=== PATIENT | male | born 1940 | race Caucasian/White ===

== ENCOUNTER 2021-04-26 01:48 | Inpatient (IN) | payer MEDICARE, OTHER ==
[2021-04-26 03:02] LABS: BASOPHILS % (AUTO) 0.3 %; EOSINOPHILS % (AUTO) 0.8 %; HCT - HEMATOCRIT 33.9 % (42.0-52.0); HGB - HEMOGLOBIN 11.4 g/dL (14.0-18.0); LYMPHOCYTES % (AUTO) 14.9 %; MEAN CORPUSCULAR HEMOGLOBIN 30.3 pg (27.0-31.0); MEAN CORPUSCULAR HGB CONC 33.6 g/dL (32.0-36.0); MEAN CORPUSCULAR VOLUME 90.2 fL (80.0-94.0); MEAN PLATELET VOLUME 9.8 fL (7.4-11.4); PLT - PLATELET COUNT 171 10^3/uL (130-450); RED BLOOD COUNT 3.76 10^6/uL (4.70-6.10); RED CELL DISTRIBUTION WIDTH 13.3 % (12.0-15.0); WHITE BLOOD COUNT 7.8 x10^3/uL (4.8-10.8)
[2021-04-26 03:09] LABS: ABNORMAL LYMPHS % (MANUAL) 0 %
[2021-04-26 03:13] LABS: VBG BASE EXCESS 0.9 mmol/L (-2 - +2); VBG HCO3 23.8 mmol/L (23-28); VBG OXYGEN SATURATION 68.5 % (60-80); VBG PCO2 32.4 mmHg (41-51); VBG PH 7.484 (7.31-7.41); VBG PO2 30.8 mmHg (25-47); VBG TOTAL CO2 24.8 mmol/L (24-29)
[2021-04-26 03:18] LABS: ALBUMIN 3.1 g/dL (3.2-5.5); ALBUMIN/GLOBULIN RATIO 0.7 (1.0-2.2); BILIRUBIN,TOTAL 1.5 mg/dL (0.2-1.0); CALCIUM 8.8 mg/dL (8.5-10.3); CREATININE 1.6 mg/dL (0.6-1.2); TOTAL PROTEIN 7.6 g/dL (6.7-8.2)
[2021-04-26 03:21] LABS: BAND NEUTROPHILS % (MANUAL) 8 %; DIFFERENTIAL COMMENT MANUAL DIFFERENTIAL; LYMPHOCYTES # (MANUAL) 0.9 10^3/uL (1.5-3.5); LYMPHOCYTES % (MANUAL) 11 %; MONOCYTES # (MANUAL) 0.6 10^3/uL (0.0-1.0); NEUTROPHILS # (MANUAL) 6.3 10^3/uL (1.5-6.6); PLATELET ESTIMATE, MANUAL NORMAL (130-450,000) (NORMAL); RBC MORPHOLOGY (MULTIPLE) NORMAL APPEARANCE (NORMAL)
[2021-04-26] MEDS ORDERED: IOVERSOL 320 100 ML VIAL IVP ONE ×2 (03:32→05:10)
[2021-04-26] MEDS ORDERED: ONDANSETRON 4 MG/2 ML VIAL IVP PRN (05:38)
[2021-04-26] MEDS ORDERED: ACETAMINOPHEN 325 MG TABLET PO PRN (05:38)
--- NOTE | 2021-04-26 05:46 | ED Physician Documentation ---
History of Present Illness - Stated complaint Stated Complaint: SOA - Chief complaint Chief Complaint: Cardiac - History obtained from History obtained from: Patient - Additonal information Additional information: 81-year-old man with history of COPD, pacemaker, high blood pressure, presents with dyspnea on exertion over the past several days progressively worsening dyspnea at rest after driving here 2 days ago from [place]. Patient has no prior history of blood clots. Denies chest pain, but does have some mild pleurisy. Denies cough. Denies fever, leg swelling. Review of Systems Ten Systems: 10 systems reviewed and negative Constitutional: denies: Fever, Chills Cardiac: denies: Chest pain / pressure Respiratory: reports: Dyspnea PD PAST MEDICAL HISTORY - Allergies Allergies/Adverse Reactions: Allergies Allergy/AdvReac Type Severity Reaction Status Date / Time clopidogrel [From Plavix] Allergy Respiratory Verified 04/26/21 02:08 enoxaparin [From Lovenox] Allergy Anaphylaxis Verified 04/26/21 02:07 furosemide [From Lasix] Allergy Respiratory Verified 04/26/21 02:08 PD ED PE NORMAL - Vitals Vital signs reviewed: Yes - General General: Alert and oriented X 3, No acute distress, Well developed/nourished - HEENT HEENT: Atraumatic, PERRL, EOMI - Neck Neck: Supple, no meningeal sign - Cardiac Cardiac: Other (Borderline tachycardic rate, regular rhythm) - Respiratory Respiratory: No respiratory distress, Clear bilaterally - Abdomen Abdomen: Non tender, Non distended - Back Back: No CVA TTP - Derm Derm: Normal color, Warm and dry - Extremities Extremities: No deformity, No edema - Neuro Neuro: Alert and oriented X 3 - Psych Psych: Normal mood, Normal affect Results - Vitals Vitals: Vital Signs - 24 hr 04/26/21 04/26/21 02:03 03:49 Temperature 36.4 C L Heart Rate 118 H 104 H Respiratory 20 22 Rate Blood Pressure 138/72 H O2 Saturation 96 96 Oxygen O2 Source Room air - EKG (time done) 0212 Rate: Rate (enter#) (111) Rhythm: Sinus tachycardia Duncan: Normal Intervals: Normal OR - Labs Labs: Laboratory Tests 04/26/21 04/26/21 04/26/21 02:55 02:55 02:55 WBC 7.8 RBC 3.76 L Hgb 11.4 L Hct 33.9 L MCV 90.2 MCH 30.3 MCHC 33.6 RDW 13.3 Plt Count 171 MPV 9.8 Neut # (Auto) Not Reportable Lymph # (Auto) Not Reportable Emery # (Auto) Not Reportable Eos # (Auto) Not Reportable Baso # (Auto) Not Reportable Absolute Nucleated RBC Not Reportable Total Counted 100 Band Neuts % (Manual) 8 Abnorm Lymph % (Manual) 0 Nucleated RBC % Not Reportable Neutrophils # (Manual) 6.3 Lymphocytes # (Manual) 0.9 L Monocytes # (Manual) 0.6 Eosinophils # (Manual) 0.0 Basophils # (Manual) 0.0 Differential Comment MANUAL DIFFERENTIAL Platelet Estimate NORMAL (130-450,000) RBC Morph Micro Appear NORMAL APPEARANCE D-Dimer VBG pH VBG pCO2 VBG pO2 VBG HCO3 VBG Total CO2 VBG O2 Saturation VBG Base Excess Sodium 133 L Potassium 4.0 Chloride 98 L Carbon Dioxide 24 Anion Gap 11.0 BUN 28 H Creatinine 1.6 H Estimated GFR (MDRD) 41 L Glucose 107 H Calcium 8.8 Total Bilirubin 1.5 H AST 13 ALT 14 Alkaline Phosphatase 58 Troponin I High Sens 27.1 H* Total Protein 7.6 Albumin 3.1 L Globulin 4.5 H Albumin/Globulin Ratio 0.7 L Lipase 19 L 04/26/21 04/26/21 02:55 03:05 WBC RBC Hgb Hct MCV MCH MCHC RDW Plt Count MPV Neut # (Auto) Lymph # (Auto) Emery # (Auto) Eos # (Auto) Baso # (Auto) Absolute Nucleated RBC Total Counted Band Neuts % (Manual) Abnorm Lymph % (Manual) Nucleated RBC % Neutrophils # (Manual) Lymphocytes # (Manual) Monocytes # (Manual) Eosinophils # (Manual) Basophils # (Manual) Differential Comment Platelet Estimate RBC Morph Micro Appear D-Dimer 932.3 H VBG pH 7.484 H VBG pCO2 32.4 L VBG pO2 30.8 VBG HCO3 23.8 VBG Total CO2 24.8 VBG O2 Saturation 68.5 VBG Base Excess 0.9 Sodium Potassium Chloride Carbon Dioxide Anion Gap BUN Creatinine Estimated GFR (MDRD) Glucose Calcium Total Bilirubin AST ALT Alkaline Phosphatase Troponin I High Sens Total Protein Albumin Globulin Albumin/Globulin Ratio Lipase PD MEDICAL DECISION MAKING - ED course ED course: PE on CT imaging without R heart strain. patient states that he believes he has had heparin in the past without issue. He had lovenox andbecame "short of breath after a few days". d/w Dr. Ozunaf for admission and he agrees we will give him heparin and monitor for allergic reaction. Departure - Departure Disposition: 66 [facility] DC/Xfer Clinical Impression: Pulmonary emboli, Shortness of breath Condition: Stable
[2021-04-26 06:04] LABS: BASOPHILS % (AUTO) 0.1 %; EOSINOPHILS % (AUTO) 0.5 %; HCT - HEMATOCRIT 32.9 % (42.0-52.0); HGB - HEMOGLOBIN 11.2 g/dL (14.0-18.0); LYMPHOCYTES # (AUTO) 1.3 10^3/uL (1.5-3.5); LYMPHOCYTES % (AUTO) 18.3 %; MEAN CORPUSCULAR HEMOGLOBIN 30.4 pg (27.0-31.0); MEAN CORPUSCULAR VOLUME 89.2 fL (80.0-94.0); MEAN PLATELET VOLUME 9.5 fL (7.4-11.4); MONOCYTES # (AUTO) 1.2 10^3/uL (0.0-1.0); MONOCYTES % (AUTO) 16.8 %; NEUTROPHILS # (AUTO) 4.4 10^3/uL (1.5-6.6); NEUTROPHILS % (AUTO) 59.5 %; PLT - PLATELET COUNT 169 10^3/uL (130-450); RED BLOOD COUNT 3.69 10^6/uL (4.70-6.10); RED CELL DISTRIBUTION WIDTH 13.3 % (12.0-15.0); WHITE BLOOD COUNT 7.3 x10^3/uL (4.8-10.8)
[2021-04-26 06:08] LABS: INR 1.5 (0.8-1.2); PT - PROTHROMBIN TIME 15.9 secs (9.9-12.6)
[2021-04-26 06:10] LABS: CALCIUM 8.7 mg/dL (8.5-10.3); CREATININE 1.6 mg/dL (0.6-1.2); POTASSIUM 3.9 mmol/L (3.5-5.0)
[2021-04-26 06:15] LABS: PARTIAL THROMBOPLASTIN TIME 30.3 secs (24.9-33.3)
[2021-04-26 08:06] LABS: B. PARAPERTUSSIS- RESP PCR PAN NOT DETECTED; B. PERTUSSIS- RESP PCR PANEL NOT DETECTED; C. PNEUMONIAE- RESP PCR PANEL NOT DETECTED; CORONAVIRUS 229E-RESP PCR NOT DETECTED; CORONAVIRUS HKU1-RESP PCR NOT DETECTED; CORONAVIRUS NL63-RESP PCR NOT DETECTED; CORONAVIRUS OC43-RESP PCR NOT DETECTED; HUMAN METAPNEUMOVIRUS NOT DETECTED; INFLUENZA A- RESP PCR PANEL NOT DETECTED; INFLUENZA B - RESP PCR PANEL NOT DETECTED; M. PNEUMONIAE- RESP PCR PANEL NOT DETECTED; PARAINFLUENZA VIRUS 1 NOT DETECTED; PARAINFLUENZA VIRUS 2 NOT DETECTED; PARAINFLUENZA VIRUS 3 NOT DETECTED; PARAINFLUENZA VIRUS 4 NOT DETECTED; RHINOVIRUS/ENTEROVIRUS NOT DETECTED; RSV- RESP PCR PANEL NOT DETECTED; SARS-CoV-2 -RESP PCR PANEL NOT DETECTED
--- NOTE | 2021-04-26 08:19 | XRAY Report ---
PROCEDURE: Chest 1 View X-Ray INDICATIONS: Chest pain TECHNIQUE: One view of the chest was acquired. COMPARISON: None FINDINGS: Surgical changes and devices: Pacemaking device in normal. Lungs and pleura: No pleural effusions or pneumothorax. Lungs are abnormal with a mild interstitial prominence bilaterally but no focal pneumonia. Mediastinum: Mediastinal contours appear normal. Heart size is normal. Bones and chest wall: No suspicious bony lesions. Overlying soft tissues appear unremarkable. IMPRESSION: Interstitial prominence, without cardiomegaly. Possible acute cardiogenic pulmonary edema versus perh aps reflection of prior smoking history. Pacemaking device and leads appear free of disruption. Prior sternotomy, presumed prior CABG. Reviewed by: Leonel Echevarria MD on 04/26/2021 8:17 AM PDT Approved by: Leonel Echevarria MD on 04/26/2021 8:17 AM PDT Station ID: [id number]
--- NOTE | 2021-04-26 09:30 | HISTORY & PHYSICAL EXAMINATION ---
Chief Complaint - Chief Complaint Chief Complaint: shortness of breath History of Present Illness - Admitted From Admitted From:: home - History Obtained From Records Reviewed: from PCP office (Aguila Saeed MD in [place], [place]) History obtained from: patient, records Exam Limitations: poor historian - History of Present Illness HPI Comment/Other: Mr. Rojas presented to the ED overnight with shortness of breath and dyspnea on exertion. Unbeknownst to his immediate family, he and his drove from their home in [place] to visit his 's sons who live here in [place]. The patient is a poor historian and it is unclear exactly when his symptoms started. He states he "must have had these clots for a while" and provides an unclear history of trouble walking and breathing, which he is now contributing to "all these clots." According to his PCP office, family had previously requested his license to be revoked due to safety and memory concerns. He does endorse pleurisy and dyspnea but denies palpitations, chest pain, dizziness, or nausea/vomiting. He does not have any immediate concerns, and emphatically states that "I know I'm living on borrowed time, but I know where I'm going when the time comes- all things considered, I think I'm doing pretty good!". In the ED, chest CT revealed bilateral saddle emboli within the main pulmonary arteries, moderate left and small right pleural effusions, and an inc idental finding of a 3.5cm adrenal nodule. Given his history of multiple medication allergies to anticoagulants, his consulting systems engineer office was contacted to clarify reaction severity and history. Unfortunately, his consulting systems engineer was out of the office and the office nurse was uncomfortable discussing patient details without the consulting systems engineer present. Today, will we optimize medication management of his PEs, monitor for new hemodynamic instability, and address safety issues as able and appropriate. History - Past Medical History Cardiovascular: reports: Congestive heart failure, Hypertension, Coronary artery disease, Peripheral Vascular Disease, NC. denies: Deep vein thrombosis, Murmur, Arrhythmia Respiratory: reports: COPD, Shortness of breath. denies: Asthma, Cystic fibrosis, Tuberculosis Neuro: reports: Dementia, CVA. denies: Alzhiemer's, Cerebral palsy, Headaches, Migraines, Parkinson's, Seizure disorder, Tremors, Multiple sclerosis Endocrine/Autoimmune: reports: Type 2 diabetes. denies: Type 1 diabetes, HyPERthyroidism, Systemic lupus erythematosus GI: reports: Chronic constipation, Cholelithiasis, Other. denies: Esophageal varices, GI bleed, C.difficile, Chronic diarrhea, Hepatitis, Cirrhosis, Ulcerative colitis, Crohn's disease : reports: Benign prostate hypertrophy, Frequency, Other (urgency, dysuria). denies: Dialysis, Chronic bladder infection, Indwelling catheter HEENT: reports: Other (cataracts). denies: Glaucoma, Chronic sinusitis, Chronic hearing loss Psych: reports: None. denies: Depression, Anxiety, Bipolar disorder, Schizophrenia, Panic attacks, ADD/ADHD, Post traumatic stress disorder, Claustrophobia, Obsessive compulsive disorder, Eating disorder Musculoskeletal: reports: Osteoarthritis, Gout, Fatigue, Chronic back pain. denies: Fibromyalgia, Paraplegia, Quadriplegia, Hemiplegia, Scoliosis Derm: reports: Psoriasis. 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 The patient has 5 brothers and 3 sisters, all . He states all of his siblings had "at least one NC at some point." Two sisters of heart complications related to untreated rheumatic fever complications. The patient has two daughters with his previous (who is ). One daughter of pneumonia 2/2 severe asthma. Living daughter has MS. Living arrangement: At home Living Situation: With spouse/s.o. (Lives at home with . Re- 4.5yrs ago. ) Social History Notes: Still active as [employer]or. Originally from [place]. - Substance History Use: Uses substance without health or social issues: NONE (Quit smoking and drinking 30yrs ago. History of 50-year 4ppd tobacco use prior to quitting.) Abuse: Recurrent use of substance despite neg consequences: NONE Dependence: Experiences withdrawal or developed tolerances: NONE - POLST Patient has POLST: Yes POLST Status: DNR (POLST at home) Meds/Allgy - Home Medications Home Medications: Ambulatory Orders Medication Instructions Recorded Confirmed Albuterol Sulfate [Proair 2 puffs PO Q4H PRN 04/26/21 04/26/21 Respiclick] Bumetanide [Bumex] 1 mg PO DAILY 04/26/21 04/26/21 Docusate Sodium 100Mg Capsule 100 mg PO DAILY PRN 04/26/21 04/26/21 [Colace 100Mg Capsule] Fluticasone/Vilanterol [Breo 1 puffs PO DAILY 04/26/21 04/26/21 Ellipta 100-25 Mcg INH] Glimepiride [Amaryl] 4 mg PO BID 04/26/21 04/26/21 Ivabradine HCl [Corlanor] 5 mg PO BID 04/26/21 04/26/21 Probenecid [Benemid] 500 mg PO BID 04/26/21 04/26/21 metOLazone [Metolazone] 5 mg PO DAILY 04/26/21 04/26/21 - Allergies Allergies/Adverse Reactions: Allergies Allergy/AdvReac Type Severity Reaction Status Date / Time clopidogrel [From Plavix] Allergy Respiratory Verified 04/26/21 02:08 enoxaparin [From Lovenox] Allergy Anaphylaxis Verified 04/26/21 02:07 furosemide [From Lasix] Allergy Respiratory Verified 04/26/21 02:08 Review of Systems - Constitutional Constitutional: reports: Fatigue, Weakness. denies: Fever, Chills, Diaphoresis, Night sweats, Weight gain, Weight loss - Eyes Eyes: denies: Pain, Irritation, Amaurosis, Dipolpia - Ears, Nose & Throat Ears, Nose & Throat: reports: Postnasal drainage. denies: Ear pain, Hearing loss, Hearing aids, Tinnitus, Nasal pain, Sore throat - Cardiovascular Cariovascular: reports: Irregular heart rate, Edema, Lightheadedness, Exertional dyspnea, Decr. exercise tolerance. denies: Palpitations, Chest pain, Orthopnea - Respiratory Respiratory: reports: SOB at rest, SOB with exertion, Pleuritic pain. denies: Wheezing, Hemoptysis, Stridor - Gastrointestinal Gastrointestinal: reports: Constipation, Bloating, Other (flatulence). denies: Abdominal distention, Diarrhea, Change in bowel habits, Rectal bleeding, Black stools, Bloody stools, Vomiting, Bile emesis, Shailesh blood emesis, Coffee grounds emesis, Poor appetite - Genitourinary Genitourinary: reports: Dysuria, Frequency, Urgency. denies: Hematuria, Flank pain, Urethral discharge - Musculoskeletal Musculoskeletal: reports: Back pain, Limited range of motion, Muscle weakness, Gout, Joint pain. denies: Muscle pain, Muscle aches - Integumentary Integumentary: reports: Dryness, Other (psoriatic patches). denies: Lumps, Acne, Pigment changes, Hair changes - Neurological Neurological: reports: General weakness, Numbness (numbness to bilateral fingers and feet), Memory problems. denies: Headache, Dizziness, Seizures, Slurred speech - Psychiatric Psychiatric: denies: Depression, Anxiety, Suicidal, Hallucinations, Homicidal - Endocrine Endocrine: denies: Polyuria, Polydypsia, Polyphagia, Intolerance to cold, Intolerance to heat - Hematologic/Lymphatic Hematologic/Lymphatic: reports: Bruising. denies: Lymphadenopathy, Bleeding tendencies, Recurrent infections Prior Level of Functionality: Patient is a poor historian and it is currently unclear what his baseline is. Prior to hospitalization patient reports being fully independent, but "forgetful." Exam - Vital Signs Vital Signs: Vital Signs x48h Temp Pulse Pulse Resp BP BP Pulse Ox 04/26/21 07:15 36.7 C 134 H 20 125/57 L 93 04/26/21 03:49 104 H 22 96 04/26/21 02:03 36.4 C L 118 H 20 138/72 H 96 - Physical Exam General Appearance: positive: No acute distress, Alert Eyes Bilateral: positive: PERRL, EOMI, No lid inflammation, Conjunctivae nml, No scleral icterus ENT: positive: Other (cerumen burden to both ears) Neck: positive: Thyroid nml, No JVD, Trachea midline Respiratory: positive: Other (slight crackles to LLL, shallow inspiration) Cardiovascular: positive: Irregularly irregular, Tachycardia Peripheral Pulses: positive: 2+ Abdomen: positive: Nml bowel sounds, Mass (palpable tender mass to LLQ; patient states this has been ongoing but is unclear of etiology) Back: positive: Nml inspection Skin: positive: Color nml, Warm, Dry, Other (scattered dry abrasions, psoriatic patches, and bruising) Extremities: positive: Non-tender, Full ROM, Pedal edema (+1 RLE) Neurologic/Psychiatric: positive: Weakness, Sensory loss (bilateral fingers and feet) Conclusion/Plan - Problem List (1) Pulmonary emboli Conclusion/Plan: CT scan reveals bilateral saddle pulmonary emboli within the main pulmonary arteries. PE likely provoked by recent long car ride as patient and his drove up from [place] this week prior to presenting symptoms. PESI score 133, but for now patient will remain on med-surg unit as he otherwise appears hemodynamically stable and does not currently have evidence of right heart strain. No indication for thrombolysis at this time, especially given patient's age and current stability. Patient has an unclear allergy/intolerance to multiple anticoagulants and was thus started on fondaparinux for initial anticoagulation. Will review best oral anticoagulant options tomorrow with patient and insurance. Qualifiers: Pulmonary embolism type: saddle Chronicity: acute (2) Atrial fibrillation with RVR Conclusion/Plan: New onset a-fib with RVR. Will recheck troponins and draw thyroid panel, but likely due to saddle PE. 1 dose IV metoprolol given prior to initiating oral metoprolol today. This afternoon, HR down to low 100's from prior 130's this morning. Will reassess tomorrow. (3) CHF (congestive heart failure) Qualifiers: Heart failure type: systolic Heart failure chronicity: acute on chronic Qualified Code(s): I50.23 - Acute on chronic systolic (congestive) heart failure (4) COPD (chronic obstructive pulmonary disease) Conclusion/Plan: Patient is not currently experiencing COPD exacerbation and is satting well on room air. Albuterol inhaler available as needed. Qualifiers: COPD type: unspecified COPD Qualified Code(s): J44.9 - Chronic obstructive pulmonary disease, unspecified (5) Chronic back pain Conclusion/Plan: Not currently in an acute flare. Tylenol ordered and available as needed for discomfort. (6) Generalized weakness Conclusion/Plan: Patient states that he has a walker at home, but does not use it. He reports "walking like he's drunk" recently, but denies falling or safety concerns. He seems to be a poor historian. May be experiencing acute weakness due to PE. Will encourage ambulation with nursing staff and order PT if needed. (7) Diabetes mellitus Conclusion/Plan: On Glimeperide at home. This will be held during this admission and will instead initiate sliding scale coverage while inpatient. Glucose levels stable so far since admission. 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
--- NOTE | 2021-04-26 09:54 | CT Report ---
PROCEDURE: ANGIO CHEST W/WO INDICATIONS: elevated dimer, soa CONTRAST: IV CONTRAST: Optiray 320 ml: 100 PO CONTRAST: *NO PO CONTRAST TECHNIQUE: After the administration of intravenous contrast, images were acquired from the pulmonary apices to t he posterior costophrenic angles. 3-dimensional maximum intensity projection (MIP) coronal and sagit vicky reformats were then acquired through the thorax. For radiation dose reduction, the following was used: automated exposure control, adjustment of mA and/or kV according to patient size. COMPARISON: Single view chest 04/26/2021. FINDINGS: Image quality: Excellent. Pulmonary arteries: Pulmonary arteries are normal in size, and demonstrate definite bilateral intral uminal filling defects diagnostic of central pulmonary embolism. These are nonocclusive, located at the bifurcation of the main pulmonary arteries with "saddle embolus" morphology extending into the im mediate adjacent branches of the main pulmonary arteries. Additional emboli, also nonocclusive, exten ding to the posterior basal pulmonary artery branches bilaterally. Lungs and pleura: Lungs are abnormal with what appears to be a combination of centrilobular emphysem a and mild pulmonary edema. There are bilateral pleural effusions, small on the right and small-to-mo derate on the left, and no pneumothorax. Central and peripheral airways are patent. Mediastinum: Heart size is normal, without pericardial effusion. No mediastinal or hilar adenopathy . Thoracic aorta is normal in caliber and enhancement. Esophagus is normal in caliber, without hiat al hernia. Pacemaking device and dual chamber leads normal. Bones and chest wall: No suspicious bony lesions. Ribs and thoracic spine appear intact throughout. No axillary or supraclavicular adenopathy. The thyroid is normal in size and there are no incident al findings. Abdomen: Visualized upper abdominal solid organs appear normal in the early arterial phase of enhanc ement, except for a 3.5 cm low density right adrenal nodule. IMPRESSION: 1. Bilateral pulmonary emboli, nonocclusive. 2. COPD. Superimposed mild pulmonary edema. 3. Bilateral pleural effusions, small on the right and [id number] on the left. 4. Low-density ovoid sharply demarcated right adrenal nodule presumably in adrenal adenoma. Follow-up by MRI adrenal protocol scanning utilizing noncontrast technique likely is warranted to confirm anthony gn etiology. Reviewed by: Leonel Echevarria MD on 04/26/2021 9:52 AM PDT Approved by: Leonel Echevarria MD on 04/26/2021 9:52 AM PDT Station ID: [id number]
[2021-04-26] MEDS: SODIUM CHLORIDE FLUSH 0.9% 10 ML SYRINGE IVP SCH ×2 (10:05→21:47)
[2021-04-26] MEDS: FONDAPARINUX 7.5 MG/0.6 ML SYRINGE SUBQ SCH (10:05)
[2021-04-26] MEDS: INSULIN ASPART 300 UNIT/3 ML PEN SUBQ SCH ×3 (11:25→21:41)
[2021-04-26] MEDS ORDERED: INSULIN ASPART 300 UNIT/3 ML PEN SUBQ SCH (12:00)
[2021-04-26] MEDS ORDERED: METOPROLOL 5 MG/5 ML VIAL IVP STA (13:06)
--- NOTE | 2021-04-26 14:25 | PHARMACY PROGRESS NOTE ---
- Best Possible Medication History Admit Date and Time: 04/26/21 0538 Processed by: Pharmacy Medication History completed: Yes Patient Interview: Completed Secondary Source(s): Spouse/Significant other (CALLED , SHE READ MED LIST ), Physician records, Pharmacy records, Insurance records As the person ultimately responsible for medication therapy, providers are able to order a medication from an existing home medication list in [facility] via the "Reconcile Routine" prior to Confirmation of that medication by residential support specialist. Such practice is discouraged except when the physician, in their clinical judgment, deems that a medical need exists for a medication without regard to previous use.
--- NOTE | 2021-04-26 14:55 | Ultrasound Report ---
PROCEDURE: Duplex Ext Veins Bilateral INDICATIONS: ALVINA PATRICIO TECHNIQUE: Real-time imaging, as well as color and pulse Doppler interrogation, were performed of the deep veins of both legs from the inguinal ligament to the popliteal fossa. COMPARISON: FINDINGS: The right side deep veins are normally compressible, and free of intraluminal thrombus. C olor and pulse Doppler demonstrate normal phasic intravascular flow. There is normal augmentation re sponse to distal compression maneuver. The left side deep venous system did show one area of nonoccl usive eccentric thrombus, within the popliteal vein. IMPRESSION: No sign of right-sided DVT but there is a popliteal vein partially occlusive eccentric DVT at the kne e level. Reviewed by: Leonel Echevarria MD on 04/26/2021 2:53 PM PDT Approved by: Leonel Echevarria MD on 04/26/2021 2:53 PM PDT Station ID: [id number]
[2021-04-26] MEDS: ALBUTEROL NEB 2.5 MG/3 ML INH PRN (19:30)
[2021-04-26] MEDS: METOPROLOL TARTRATE 25 MG TABLET PO SCH (21:47)
[2021-04-26] MEDS ORDERED: MIN OIL/DIMETHICON/COCONUT OIL 92 GM TUBE TOP PRN (23:00)
[2021-04-26] MEDS: SODIUM CHLORIDE FLUSH 0.9% 10 ML SYRINGE IVP PRN (23:01)
[2021-04-27] MEDS: SODIUM CHLORIDE FLUSH 0.9% 10 ML SYRINGE IVP SCH ×3 (01:50→15:30)
[2021-04-27 06:24] LABS: BASOPHILS % (AUTO) 0.2 %; EOSINOPHILS % (AUTO) 0.6 %; HCT - HEMATOCRIT 33.6 % (42.0-52.0); HGB - HEMOGLOBIN 11.4 g/dL (14.0-18.0); LYMPHOCYTES % (AUTO) 17.7 %; MEAN CORPUSCULAR HEMOGLOBIN 30.6 pg (27.0-31.0); MEAN CORPUSCULAR HGB CONC 33.9 g/dL (32.0-36.0); MEAN CORPUSCULAR VOLUME 90.1 fL (80.0-94.0); MONOCYTES % (AUTO) 16.2 %; NEUTROPHILS % (AUTO) 58.2 %; PLT - PLATELET COUNT 181 10^3/uL (130-450); RED BLOOD COUNT 3.73 10^6/uL (4.70-6.10); RED CELL DISTRIBUTION WIDTH 13.5 % (12.0-15.0)
[2021-04-27 06:27] LABS: ABNORMAL LYMPHS % (MANUAL) 0 %
[2021-04-27 06:33] LABS: CALCIUM 8.5 mg/dL (8.5-10.3); POTASSIUM 4.6 mmol/L (3.5-5.0)
[2021-04-27] MEDS: INSULIN ASPART 300 UNIT/3 ML PEN SUBQ SCH ×4 (07:51→20:55)
[2021-04-27 08:01] LABS: BAND NEUTROPHILS % (MANUAL) 2 %; EOSINOPHILS # (MANUAL) 0.1 10^3/uL (0-0.7); LYMPHOCYTES # (MANUAL) 1.1 10^3/uL (1.5-3.5); LYMPHOCYTES % (MANUAL) 14 %; MONOCYTES # (MANUAL) 1.4 10^3/uL (0.0-1.0); NEUTROPHILS # (MANUAL) 5.4 10^3/uL (1.5-6.6)
[2021-04-27 08:12] LABS: PLATELET ESTIMATE, MANUAL NORMAL (130-450,000) (NORMAL); PLATELET MORPHOLOGY NORMAL APPEARANCE (NORMAL); RBC MORPHOLOGY (MULTIPLE) NORMAL APPEARANCE (NORMAL); WBC MORPHOLOGY (MULTIPLE) NORMAL APPEARANCE (NORMAL)
[2021-04-27 08:13] LABS: DIFFERENTIAL COMMENT MANUAL DIFFERENTIAL
[2021-04-27 08:32] LABS: ESTIMATED AVERAGE GLUCOSE 194 mg/dL (70-100); HEMOGLOBIN A1c% 8.4 % (4.27-6.07)
[2021-04-27] MEDS: FONDAPARINUX 7.5 MG/0.6 ML SYRINGE SUBQ SCH (09:58)
[2021-04-27] MEDS: METOPROLOL TARTRATE 25 MG TABLET PO SCH ×2 (09:58→20:42)
[2021-04-27] MEDS: ALBUTEROL NEB 2.5 MG/3 ML INH PRN ×3 (11:56→19:30)
--- NOTE | 2021-04-27 14:15 | Discharge Plan ---
Discharge Plan Problem Reviewed?: Yes Disposition: Home, Self Care Condition: Fair Prescriptions: Apixaban [Eliquis] 10 mg PO BID #28 tablet Apixaban [Eliquis] 5 mg PO DAILY #30 tablet Diet: Cardiac Activity Restrictions: Activity as Tolerated Shower Restrictions: No Driving Restrictions: Yes (no driving) Health Concerns: You are a gentleman who has a long medical history. 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 Because of these intolerances, you are unable to take the standard medications for congestive heart failure. You also are unable to take the standard medications for blood thinners. Specifically you used to be on Plavix but refused to take it because it upset your stomach. The same for aspirin. You also state that you cannot take heparin or Lovenox or Xarelto. Some of these medications have given you "anaphylaxis, and other medications have just not made you feel good. After a long car drive from [place], he came to the hospital because you were having increasing shortness of breath. We found you have had a blood clot, several of them, to the lungs. This put a tremendous strain on your lungs and heart and major even more short of breath. You were unable to take Lovenox or heparin because of her previous statement of anaphylaxis. We gave you Arixtra. It is an injectable anticoagulant. You now feels stable enough to return to home. Plan of Treatment: 1. We do think that you have memory loss and slowing down with aging. As such we are asking you not to drive anymore. And we are asking your to drive you home. 2. Because of your multiple drug intolerances, we are going to try Eliquis for blood thinning for the blood clot. You'll take 10 mg twice a day for a week. Then 5 mg daily thereafter. Drug thinners can cause internal bleeding, so please be careful with falling or hitting her head. If you have any blood in your nose, urine, or stool notify your doctor immediately. 3. Because of your inability to take medications that would prolong her life, I do feel that you have a shorter life span than most people do with your conditions. As a man of ned, you've already made numerous plans for the end of your life. You gave me an example that you would like to live in a convalescent home when your can no longer take care of you. You also tell me that your goal is to live long enough to see your new young senior integration developer in her caodaism be trained appropriately. There is a wonderful plans and have already been made. I would ask you to ask your primary care provider to refer you to hospice when appropriate. 4. Please see your primary care provider when you get back to [place]. They may need to adjust your medication. They also need to be brought up-to-date about what happened to you here in [place].. Care Goals: To be as comfortable as possible until the end of your life. Assessment: Patient and participated in advance care planning. Goals were set and they will follow through on those goals. No Smoking: If you smoke, Please STOP! Call for help.
--- NOTE | 2021-04-27 14:26 | DISCHARGE SUMMARY ---
Discharge Summary Admit Date: 04/26/21 Discharge Date: 04/27/21 Discharging Provider: Alla Gambino MD Primary Care Provider: Aguila Saeed MD [phone] (fax) Code Status: Do Not Attempt Resuscitation Condition at Discharge: Fair Discharge Disposition: 01 Home, Self Care - HPI History of Present Illness: Mr. Rojas presented to the ED overnight with shortness of breath and dyspnea on exertion. Unbeknownst to his immediate family, he and his drove from their home in [place] to visit his 's sons who live here in [place]. The patient is a poor historian and it is unclear exactly when his symptoms started. He states he "must have had these clots for a while" and provides an unclear history of trouble walking and breathing, which he is now contributing to "all these clots." According to his PCP office, family had previously requested his license to be revoked due to safety and memory concerns. He does endorse pleurisy and dyspnea but denies palpitations, chest pain, dizziness, or nausea/vomiting. He does not have any immediate concerns, and emphatically states that "I know I'm living on borrowed time, but I know where I'm going when the time comes- all things considered, I think I'm doing pretty good!". In the ED, chest CT revealed bilateral saddle emboli within the main pulmonary arteries, moderate left and small right pleural effusions, and an incidental finding of a 3.5cm adrenal nodule. Given his history of multiple medication allergies to anticoagulants, his plunket nurse office was contacted to clarify reaction severity and history. Unfortunately, his plunket nurse was out of the office and the office nurse was uncomfortable discussing patient details without the plunket nurse present. Today, will we optimize medication management of his PEs, monitor for new hemodynamic instability, and address safety issues as able and appropriate. - Past Medical History Cardiovascular: reports: Congestive heart failure, Hypertension, Coronary artery disease, Peripheral Vascular Disease, KS. denies: Deep vein thrombosis, Murmur, Arrhythmia Respiratory: reports: COPD, Shortness of breath. denies: Asthma, Cystic fibrosis, Tuberculosis Neuro: reports: Dementia, CVA. denies: Alzhiemer's, Cerebral palsy, Headaches, Migraines, Parkinson's, Seizure disorder, Tremors, Multiple sclerosis Endocrine/Autoimmune: reports: Type 2 diabetes. denies: Type 1 diabetes, HyPERthyroidism, Systemic lupus erythematosus GI: reports: Chronic constipation, Cholelithiasis, Other. denies: Esophageal varices, GI bleed, C.difficile, Chronic diarrhea, Hepatitis, Cirrhosis, Ulcerative colitis, Crohn's disease : reports: Benign prostate hypertrophy, Frequency, Other (urgency, dysuria). denies: Dialysis, Chronic bladder infection, Indwelling catheter HEENT: reports: Other (cataracts). denies: Glaucoma, Chronic sinusitis, Chronic hearing loss Psych: reports: None. denies: Depression, Anxiety, Bipolar disorder, Sc hizophrenia, Panic attacks, ADD/ADHD, Post traumatic stress disorder, Claustrophobia, Obsessive compulsive disorder, Eating disorder Musculoskeletal: reports: Osteoarthritis, Gout, Fatigue, Chronic back pain. denies: Fibromyalgia, Paraplegia, Quadriplegia, Hemiplegia, Scoliosis Derm: reports: Psoriasis. denies: Other drug resistant infections, Herpes zoster, Eczema, Rosacea MRSA Hx?: No - Past Surgical History General: reports: Cholecystectomy, Hiatal hernia repair Ortho: reports: Arthroscopic surgery (left knee) /NEGOTIATIONS DIRECTOR: reports: Other ("prostate surgery") Cardiovascular: reports: CABG, Coronary stent, Pacemaker HEENT: reports: Tonsil/Adenoidectomy - ALLERGIES Allergies/Adverse Reactions: Allergies Allergy/AdvReac Type Severity Reaction Status Date / Time clopidogrel [From Plavix] Allergy Respiratory Verified 04/26/21 02:08 enoxaparin [From Lovenox] Allergy Anaphylaxis Verified 04/26/21 02:07 furosemide [From Lasix] Allergy Respiratory Verified 04/26/21 02:08 - MEDICATIONS Home Medications: Ambulatory Orders Medication Instructions Recorded Confirmed Albuterol Sulfate [Proair 2 puffs PO Q4H PRN 04/26/21 04/26/21 Respiclick] Bumetanide [Bumex] 1 mg PO DAILY 04/26/21 04/26/21 Docusate Sodium 100Mg Capsule 100 mg PO DAILY PRN 04/26/21 04/26/21 [Colace 100Mg Capsule] Fluticasone/Vilanterol [Breo 1 puffs PO DAILY 04/26/21 04/26/21 Ellipta 100-25 Mcg INH] Glimepiride [Amaryl] 4 mg PO BID 04/26/21 04/26/21 Ivabradine HCl [Corlanor] 5 mg PO BID 04/26/21 04/26/21 Probenecid [Benemid] 500 mg PO BID 04/26/21 04/26/21 metOLazone [Metolazone] 5 mg PO DAILY 04/26/21 04/26/21 Apixaban [Eliquis] 5 mg PO DAILY #30 tablet 04/27/21 Apixaban [Eliquis] 10 mg PO BID #28 tablet 04/27/21 - LABS Result Diagrams: 04/27/21 06:18 04/27/21 06:18
[2021-04-27] MEDS ORDERED: FUROSEMIDE 40 MG/4 ML VIAL IVP STA ×2 (15:06→17:58)
--- NOTE | 2021-04-27 15:51 | XRAY Report ---
PROCEDURE: Chest 1 View X-Ray INDICATIONS: acute pineda, hx of PE TECHNIQUE: One view of the chest was acquired. COMPARISON: 04/26/2021. FINDINGS: Surgical changes and devices: Median sternotomy wires. Left chest wall cardiac pacer is stable.. Lungs and pleura: No pleural effusions or pneumothorax. Bilateral interstitial prominence has progre ssed in the interval since prior exam obtained 04/26/2021. Scattered alveolar opacities in both lungs bilaterally. Mediastinum: Mediastinal contours appear normal. Heart size is normal. Bones and chest wall: No suspicious bony lesions. Overlying soft tissues appear unremarkable. IMPRESSION: Exiting bilateral interstitial prominence and interval development of scattered alveolar opacities in the lungs bilaterally concerning for pulmonary edema versus atypical pneumonia. Reviewed by: Bibi Haque MD, PhD on 04/27/2021 3:49 PM PDT Approved by: Bibi Haque MD, PhD on 04/27/2021 3:49 PM PDT Station ID: [id number]
--- NOTE | 2021-04-27 16:08 | ADVANCE CARE PLANNING NOTE ---
Advance Care Planning - Planning Encounter Date: 04/27/21 Time: 15:00 Purpose: establish care goals Parties in Attendance: Hospitalist, the patient, patient's , [facility] Jerrica Zimmerman Decisional Capacity of the Patient: he is having cognitive decline that he admits to as well as endorsed by . 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 He also has had a stent. Ejection fraction estimated at 30 to 35%. He has strong views about some of the medications he takes. He is described as stubborn, independent, and noncompliant. states he has been this way the entire time she is been to him which has been about 4-1/2 years. She has a second . In reading the cardiology notes and speaking to his rules examiner, his noncompliance makes it risky to take care of him sometimes. Sometimes he takes his medicines, sometimes he does not. He refuses to take the standard medications for congestive heart failure because he does not tolerate them. He also changes his story as to what he can tolerate or cannot tolerate. As such is not anticoagulated for his low ejection fraction. - Encounter Subjective/Patient's Story: He is a gentleman who was born in the [facility]. 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 He has 2 children from his first marriage and his is by about 5 to 6 years. He remarried and has been to his current for about 4-1/2 years. She has 2 children from her marriage as well. He has chronic dyspnea on exertion. Depending on which provider note I read or which story and listen to from him, his shortness of breath is either from emphysema, congestive heart failure, the Lopressor for his congestive heart failure, the Plavix for his stent, the Lasix that he can only take IV but not p.o. His strength and endurance has lessened over the course of time. He still independent enough to take care of his own activities of daily living with regards to hygiene and eating. 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 He is still driving, but lately his cognitive deficits have become alarming enough that the family has approached the family practitioner to please report him to the DMV in [place]. He drove from [place] to [facility]. His 2 children live appear and he wanted to let her visit her sons. He presented to our emergency room with severe shortness of breath. He denied chest pain. Found to have bilateral PEs. Throughout his stay he is stoutly maintained that as a man of ned, he believes in heaven. He is not afraid of dying. He states that he is a DO NOT RESUSCITATE. He does realize that he is getting weaker and less strong. He is already planned to go to a convalescent home when he is no longer able to stay at home and his can no longer take care of him. 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 I explained to him that we do see his lack of compliance as a conscious decision on his part. He protested and says that is not a matter of "I want but that I cannot". He states that his medicines are not tolerated and he just will not take them. He says he rather than take them. states that she does not necessarily agree with him. But she endorses his ability to make decisions and respects his ability to be independent. She recognizes that his life span is less than because of all of this. But states that "no one can make him do anything he does not want to do". Objective/Medical Story: Elderly gentleman from [place] who is visiting [facility] to see his stepchildren. He has chronic medical problems of ischemic cardiomyopathy, type 2 diabetes mellitus, hypertension, COPD, gout, chronic back pain. In speaking to his primary care provider office and cardiology office he has a long history of noncompliance. But as the patient puts it, "is not a question of I will not, but I cannot". He just cannot tolerate the meds because they make his stomach hurt, or they make him short of breath, or he feels like he is going to on them. Our concern is that he is not on congestive heart failure medications that are appropriate. But in reading the cardiology notes and speaking to cardiology, they are well aware. They cannot convince the patient to take an BRIAN inhibitor, ARB, regular diuretic by mouth, or beta-diaz. He is willing to take Lasix by IV but not by mouth. I wanted to introduce the topic of end-of-life conversation with him. He is well aware that his days are numbered. He is not interested in changing his philosophy or self-management. He already has plans that will take care of the practicalities before his . And , although does not agree sometimes, will honor his wishes. At the end of her conversation, she wanted to give me a hug, and he wanted to shake my hand. Thanked me for being so upfront with him. Goals of Care: He has already planned his convalescent home after he gets to be too much to take care of his . He is willing to entertain the idea of hospice and I will send this advance care plan to his primary care provider to begin hospice when appropriate. He is a DO NOT RESUSCITATE. I have asked his to make sure that she does the driving from here on out. He states that he will start the anticoagulant for his pulmonary emboli but he does not know if he will continue taking it. Plan: Start Eliquis. Discharge to home here in [place]. He will then drive back to [place] with his being the emergency detail driver. Code Status: Do Not Attempt Resuscitation Time spent on advance care plannin minutes
--- NOTE | 2021-04-27 16:51 | PROVIDER PROGRESS NOTE ---
<GambinoAlla L - Last Filed: 04/28/21 09:27> Objective - Vital Signs/Intake & Output Vital Signs: Vital Signs x48h Temp Pulse Pulse Resp BP Pulse Ox 04/28/21 08:00 106 H 20 04/28/21 07:18 36.4 C L 96 20 135/68 H 98 04/28/21 05:00 36.6 C 95 22 119/67 96 Intake & Output: Intake & Output 04/25/21 04/26/21 04/27/21 04/28/21 23:59 23:59 23:59 23:59 Intake Total 590 610 Output Total 250 425 325 Balance 340 185 -325 - Lab Results Fish Bones: 04/28/21 06:37 04/28/21 06:37 Other Labs: Lab Results x24hrs 04/28/21 04/28/21 04/28/21 Range/Units 07:17 06:37 06:37 WBC 6.5 (4.8-10.8) x10^3/uL RBC 3.88 L (4.70-6.10) 10^6/uL Hgb 11.8 L (14.0-18.0) g/dL Hct 35.2 L (42.0-52.0) % MCV 90.7 (80.0-94.0) fL MCH 30.4 (27.0-31.0) pg MCHC 33.5 (32.0-36.0) g/dL RDW 13.6 (12.0-15.0) % Plt Count 197 (130-450) 10^3/uL MPV 10.2 (7.4-11.4) fL Neut # (Auto) Not Reportable Lymph # (Auto) Not Reportable [place] # (Auto) Not Reportable Eos # (Auto) Not Reportable Baso # (Auto) Not Reportable Absolute Nucleated RBC Not Reportable Total Counted 100 Band Neuts % (Manual) 0 (0 - 10) % Abnorm Lymph % (Manual) 0 % Nucleated RBC % Not Reportable Neutrophils # (Manual) 3.9 (1.5-6.6) 10^3/uL Lymphocytes # (Manual) 1.6 (1.5-3.5) 10^3/uL Monocytes # (Manual) 1.0 (0.0-1.0) 10^3/uL Eosinophils # (Manual) 0.0 (0-0.7) 10^3/uL Basophils # (Manual) 0.1 (0-0.1) 10^3/uL Differential Comment MANUAL DIFFERENTIAL WBC Morphology NORMAL APPEARANCE (NORMAL) Platelet Estimate NORMAL (130-450,000) (NORMAL) Platelet Morphology NORMAL APPEARANCE (NORMAL) RBC Morph Micro Appear NORMAL APPEARANCE (NORMAL) Sodium 132 L (135-145) mmol/L Potassium 4.8 (3.5-5.0) mmol/L Chloride 95 L (101-111) mmol/L Carbon Dioxide 24 (21-32) mmol/L Anion Gap 13.0 (6-13) BUN 52 H (6-20) mg/dL Creatinine 2.6 H (0.6-1.2) mg/dL Estimated GFR (MDRD) 24 L (>89) Glucose 137 H (70-100) mg/dL POC Whole Bld Glucose 139 H (70 - 100) mg/dL Calcium 8.6 (8.5-10.3) mg/dL Troponin I High Sens (2.3-19.7) ng/L 04/27/21 04/27/21 04/27/21 Range/Units 20:47 18:23 16:37 WBC (4.8-10.8) x10^3/uL RBC (4.70-6.10) 10^6/uL Hgb (14.0-18.0) g/dL Hct (42.0-52.0) % MCV (80.0-94.0) fL MCH (27.0-31.0) pg MCHC (32.0-36.0) g/dL RDW (12.0-15.0) % Plt Count (130-450) 10^3/uL MPV (7.4-11.4) fL Neut # (Auto) Lymph # (Auto) [place] # (Auto) Eos # (Auto) Baso # (Auto) Absolute Nucleated RBC Total Counted Band Neuts % (Manual) (0 - 10) % Abnorm Lymph % (Manual) % Nucleated RBC % Neutrophils # (Manual) (1.5-6.6) 10^3/uL Lymphocytes # (Manual) (1.5-3.5) 10^3/uL Monocytes # (Manual) (0.0-1.0) 10^3/uL Eosinophils # (Manual) (0-0.7) 10^3/uL Basophils # (Manual) (0-0.1) 10^3/uL Differential Comment WBC Morphology (NORMAL) Platelet Estimate (NORMAL) Platelet Morphology (NORMAL) RBC Morph Micro Appear (NORMAL) Sodium (135-145) mmol/L Potassium (3.5-5.0) mmol/L Chloride (101-111) mmol/L Carbon Dioxide (21-32) mmol/L Anion Gap (6-13) BUN (6-20) mg/dL Creatinine (0.6-1.2) mg/dL Estimated GFR (MDRD) (>89) Glucose (70-100) mg/dL POC Whole Bld Glucose 219 H 205 H (70 - 100) mg/dL Calcium (8.5-10.3) mg/dL Troponin I High Sens 114.9 H* (2.3-19.7) ng/L 04/27/21 04/27/21 Range/Units 16:11 11:03 WBC (4.8-10.8) x10^3/uL RBC (4.70-6.10) 10^6/uL Hgb (14.0-18.0) g/dL Hct (42.0-52.0) % MCV (80.0-94.0) fL MCH (27.0-31.0) pg MCHC (32.0-36.0) g/dL RDW (12.0-15.0) % Plt Count (130-450) 10^3/uL MPV (7.4-11.4) fL Neut # (Auto) Lymph # (Auto) [place] # (Auto) Eos # (Auto) Baso # (Auto) Absolute Nucleated RBC Total Counted Band Neuts % (Manual) (0 - 10) % Abnorm Lymph % (Manual) % Nucleated RBC % Neutrophils # (Manual) (1.5-6.6) 10^3/uL Lymphocytes # (Manual) (1.5-3.5) 10^3/uL Monocytes # (Manual) (0.0-1.0) 10^3/uL Eosinophils # (Manual) (0-0.7) 10^3/uL Basophils # (Manual) (0-0.1) 10^3/uL Differential Comment WBC Morphology (NORMAL) Platelet Estimate (NORMAL) Platelet Morphology (NORMAL) RBC Morph Micro Appear (NORMAL) Sodium (135-145) mmol/L Potassium (3.5-5.0) mmol/L Chloride (101-111) mmol/L Carbon Dioxide (21-32) mmol/L Anion Gap (6-13) BUN (6-20) mg/dL Creatinine (0.6-1.2) mg/dL Estimated GFR (MDRD) (>89) Glucose (70-100) mg/dL POC Whole Bld Glucose 193 H (70 - 100) mg/dL Calcium (8.5-10.3) mg/dL Troponin I High Sens 113.1 H* (2.3-19.7) ng/L Assessment/Plan - Problem List (1) CHF (congestive heart failure) Qualifiers: Heart failure type: systolic Heart failure chronicity: acute on chronic Qualified Code(s): I50.23 - Acute on chronic systolic (congestive) heart failure <Lary Whitman - Last Filed: 04/28/21 09:37> Subjective - Prog Note Date Prog Note Date: 04/27/21 Prog Note Time: 16:49 - Subjective Pt reports feeling: Worse (Mr. Rojas was initially feeling better this morning and planning for discharge, but this afternoon experienced acute worsening respiratory distress.) Objective - Vital Signs/Intake & Output Vital Signs: Vital Signs x48h Temp Pulse Pulse Resp BP BP Pulse Ox 04/27/21 15:44 36.7 C 101 H 30 H 122/66 97 04/27/21 14:52 103 H 30 H 04/27/21 11:58 105 H 26 H 04/27/21 11:14 36.8 C 100 24 118/64 93 04/27/21 09:58 121/64 Intake & Output: Intake & Output 04/24/21 04/25/21 04/26/21 04/27/21 23:59 23:59 23:59 23:59 Intake Total 590 210 Output Total 250 275 Balance 340 -65 - Objective General Appearance: positive: Mild distress Eyes Bilateral: positive: Normal inspection ENT: positive: ENT inspection nml Neck: positive: Nml inspection, Thyroid nml, Trachea midline Respiratory: positive: Wheezes, Other (crackles L>R) Cardiovascular: positive: Irregularly irregular Abdomen: positive: Non-tender, Nml bowel sounds, No distention Back: positive: Other (chronic back pain) Skin: positive: Warm, Dry, Other (psoriatic patches) Extremities: positive: Non-tender, Full ROM, Nml appearance Neurologic/Psychiatric: positive: Oriented x3, Other (forgetful) - Lab Results Fish Bones: 04/28/21 06:37 04/28/21 06:37 Other Labs: Lab Results x24hrs 04/27/21 04/27/21 04/27/21 Range/Units 16:37 11:03 08:37 WBC (4.8-10.8) x10^3/uL RBC (4.70-6.10) 10^6/uL Hgb (14.0-18.0) g/dL Hct (42.0-52.0) % MCV (80.0-94.0) fL MCH (27.0-31.0) pg MCHC (32.0-36.0) g/dL RDW (12.0-15.0) % Plt Count (130-450) 10^3/uL MPV (7.4-11.4) fL Neut # (Auto) Lymph # (Auto) [place] # (Auto) Eos # (Auto) Baso # (Auto) Absolute Nucleated RBC Total Counted Band Neuts % (Manual) (0 - 10) % Abnorm Lymph % (Manual) % Nucleated RBC % Neutrophils # (Manual) (1.5-6.6) 10^3/uL Lymphocytes # (Manual) (1.5-3.5) 10^3/uL Monocytes # (Manual) (0.0-1.0) 10^3/uL Eosinophils # (Manual) (0-0.7) 10^3/uL Basophils # (Manual) (0-0.1) 10^3/uL Differential Comment WBC Morphology (NORMAL) Platelet Estimate (NORMAL) Platelet Morphology (NORMAL) RBC Morph Micro Appear (NORMAL) Sodium (135-145) mmol/L Potassium (3.5-5.0) mmol/L Chloride (101-111) mmol/L Carbon Dioxide (21-32) mmol/L Anion Gap (6-13) BUN (6-20) mg/dL Creatinine (0.6-1.2) mg/dL Estimated GFR (MDRD) (>89) Glucose (70-100) mg/dL POC Whole Bld Glucose 205 H 193 H 174 H (70 - 100) mg/dL Estimat Average Glucose (70-100) mg/dL Hemoglobin A1c % (4.27-6.07) % Calcium (8.5-10.3) mg/dL Troponin I High Sens (2.3-19.7) ng/L B-Natriuretic Peptide (5-100) pg/mL TSH (0.34-5.60) uIU/mL 04/27/21 04/27/21 04/27/21 Range/Units 07:39 07:23 06:18 WBC (4.8-10.8) x10^3/uL RBC (4.70-6.10) 10^6/uL Hgb (14.0-18.0) g/dL Hct (42.0-52.0) % MCV (80.0-94.0) fL MCH (27.0-31.0) pg MCHC (32.0-36.0) g/dL RDW (12.0-15.0) % Plt Count (130-450) 10^3/uL MPV (7.4-11.4) fL Neut # (Auto) Lymph # (Auto) [place] # (Auto) Eos # (Auto) Baso # (Auto) Absolute Nucleated RBC Total Counted Band Neuts % (Manual) (0 - 10) % Abnorm Lymph % (Manual) % Nucleated RBC % Neutrophils # (Manual) (1.5-6.6) 10^3/uL Lymphocytes # (Manual) (1.5-3.5) 10^3/uL Monocytes # (Manual) (0.0-1.0) 10^3/uL Eosinophils # (Manual) (0-0.7) 10^3/uL Basophils # (Manual) (0-0.1) 10^3/uL Differential Comment WBC Morphology (NORMAL) Platelet Estimate (NORMAL) Platelet Morphology (NORMAL) RBC Morph Micro Appear (NORMAL) Sodium (135-145) mmol/L Potassium (3.5-5.0) mmol/L Chloride (101-111) mmol/L Carbon Dioxide (21-32) mmol/L Anion Gap (6-13) BUN (6-20) mg/dL Creatinine (0.6-1.2) mg/dL Estimated GFR (MDRD) (>89) Glucose (70-100) mg/dL POC Whole Bld Glucose 73 53 L* (70 - 100) mg/dL Estimat Average Glucose (70-100) mg/dL Hemoglobin A1c % (4.27-6.07) % Calcium (8.5-10.3) mg/dL Troponin I High Sens 141.3 H* (2.3-19.7) ng/L B-Natriuretic Peptide (5-100) pg/mL TSH (0.34-5.60) uIU/mL 04/27/21 04/27/21 04/27/21 Range/Units 06:18 06:18 06:18 WBC (4.8-10.8) x10^3/uL RBC (4.70-6.10) 10^6/uL Hgb (14.0-18.0) g/dL Hct (42.0-52.0) % MCV (80.0-94.0) fL MCH (27.0-31.0) pg MCHC (32.0-36.0) g/dL RDW (12.0-15.0) % Plt Count (130-450) 10^3/uL MPV (7.4-11.4) fL Neut # (Auto) Lymph # (Auto) [place] # (Auto) Eos # (Auto) Baso # (Auto) Absolute Nucleated RBC Total Counted Band Neuts % (Manual) (0 - 10) % Abnorm Lymph % (Manual) % Nucleated RBC % Neutrophils # (Manual) (1.5-6.6) 10^3/uL Lymphocytes # (Manual) (1.5-3.5) 10^3/uL Monocytes # (Manual) (0.0-1.0) 10^3/uL Eosinophils # (Manual) (0-0.7) 10^3/uL Basophils # (Manual) (0-0.1) 10^3/uL Differential Comment WBC Morphology (NORMAL) Platelet Estimate (NORMAL) Platelet Morphology (NORMAL) RBC Morph Micro Appear (NORMAL) Sodium 132 L (135-145) mmol/L Potassium 4.6 (3.5-5.0) mmol/L Chloride 98 L (101-111) mmol/L Carbon Dioxide 23 (21-32) mmol/L Anion Gap 11.0 (6-13) BUN 36 H (6-20) mg/dL Creatinine 2.0 H (0.6-1.2) mg/dL Estimated GFR (MDRD) 32 L (>89) Glucose 68 L (70-100) mg/dL POC Whole Bld Glucose (70 - 100) mg/dL Estimat Average Glucose 194 H (70-100) mg/dL Hemoglobin A1c % 8.4 H (4.27-6.07) % Calcium 8.5 (8.5-10.3) mg/dL Troponin I High Sens (2.3-19.7) ng/L B-Natriuretic Peptide 1063 H (5-100) pg/mL TSH (0.34-5.60) uIU/mL 04/27/21 04/26/21 04/26/21 Range/Units 06:18 20:38 19:06 WBC 8.0 (4.8-10.8) x10^3/uL RBC 3.73 L (4.70-6.10) 10^6/uL Hgb 11.4 L (14.0-18.0) g/dL Hct 33.6 L (42.0-52.0) % MCV 90.1 (80.0-94.0) fL MCH 30.6 (27.0-31.0) pg MCHC 33.9 (32.0-36.0) g/dL RDW 13.5 (12.0-15.0) % Plt Count 181 (130-450) 10^3/uL MPV 10.0 (7.4-11.4) fL Neut # (Auto) Not Reportable Lymph # (Auto) Not Reportable [place] # (Auto) Not Reportable Eos # (Auto) Not Reportable Baso # (Auto) Not Reportable Absolute Nucleated RBC Not Reportable Total Counted 100 Band Neuts % (Manual) 2 (0 - 10) % Abnorm Lymph % (Manual) 0 % Nucleated RBC % Not Reportable Neutrophils # (Manual) 5.4 (1.5-6.6) 10^3/uL Lymphocytes # (Manual) 1.1 L (1.5-3.5) 10^3/uL Monocytes # (Manual) 1.4 H (0.0-1.0) 10^3/uL Eosinophils # (Manual) 0.1 (0-0.7) 10^3/uL Basophils # (Manual) 0.0 (0-0.1) 10^3/uL Differential Comment MANUAL DIFFERENTIAL WBC Morphology NORMAL APPEARANCE (NORMAL) Platelet Estimate NORMAL (130-450,000) (NORMAL) Platelet Morphology NORMAL APPEARANCE (NORMAL) RBC Morph Micro Appear NORMAL APPEARANCE (NORMAL) Sodium (135-145) mmol/L Potassium (3.5-5.0) mmol/L Chloride (101-111) mmol/L Carbon Dioxide (21-32) mmol/L Anion Gap (6-13) BUN (6-20) mg/dL Creatinine (0.6-1.2) mg/dL Estimated GFR (MDRD) (>89) Glucose (70-100) mg/dL POC Whole Bld Glucose 109 H (70 - 100) mg/dL Estimat Average Glucose (70-100) mg/dL Hemoglobin A1c % (4.27-6.07) % Calcium (8.5-10.3) mg/dL Troponin I High Sens (2.3-19.7) ng/L B-Natriuretic Peptide (5-100) pg/mL TSH 3.26 (0.34-5.60) uIU/mL 04/26/21 04/26/21 Range/Units 19:06 17:02 WBC (4.8-10.8) x10^3/uL RBC (4.70-6.10) 10^6/uL Hgb (14.0-18.0) g/dL Hct (42.0-52.0) % MCV (80.0-94.0) fL MCH (27.0-31.0) pg MCHC (32.0-36.0) g/dL RDW (12.0-15.0) % Plt Count (130-450) 10^3/uL MPV (7.4-11.4) fL Neut # (Auto) Lymph # (Auto) [place] # (Auto) Eos # (Auto) Baso # (Auto) Absolute Nucleated RBC Total Counted Band Neuts % (Manual) (0 - 10) % Abnorm Lymph % (Manual) % Nucleated RBC % Neutrophils # (Manual) (1.5-6.6) 10^3/uL Lymphocytes # (Manual) (1.5-3.5) 10^3/uL Monocytes # (Manual) (0.0-1.0) 10^3/uL Eosinophils # (Manual) (0-0.7) 10^3/uL Basophils # (Manual) (0-0.1) 10^3/uL Differential Comment WBC Morphology (NORMAL) Platelet Estimate (NORMAL) Platelet Morphology (NORMAL) RBC Morph Micro Appear (NORMAL) Sodium (135-145) mmol/L Potassium (3.5-5.0) mmol/L Chloride (101-111) mmol/L Carbon Dioxide (21-32) mmol/L Anion Gap (6-13) BUN (6-20) mg/dL Creatinine (0.6-1.2) mg/dL Estimated GFR (MDRD) (>89) Glucose (70-100) mg/dL POC Whole Bld Glucose 106 H (70 - 100) mg/dL Estimat Average Glucose (70-100) mg/dL Hemoglobin A1c % (4.27-6.07) % Calcium (8.5-10.3) mg/dL Troponin I High Sens 147.1 H* (2.3-19.7) ng/L B-Natriuretic Peptide (5-100) pg/mL TSH (0.34-5.60) uIU/mL - Diagnostic Imaging Diagnostic Imaging Results: positive: Final report reviewed (CXR reviewed) Assessment/Plan - Problem List (1) Acute respiratory failure with hypoxia Impression: Patient with acute respiratory decompensation this afternoon with RR 38 and increased oxygen demands. Troponins rechecked and appeared to be downtrending, elevated cause likely due to demand ischemia r/t increased HR and PE. CXR ordered showing increased pulmonary edema. We considered that there may have been progression of his PE but decided not to order a second CTA since addit ional imaging would not change our management plan. Furosemide 40mg IV x2 ordered, as we are contributing this acute respiratory failure to CHF exacerbation at this time. (2) Pulmonary emboli Impression: Conclusion/Plan: CT scan on admission revealed bilateral saddle pulmonary emboli within the main pulmonary arteries. PE likely provoked by recent long car ride as patient and his drove up from [place] this week prior to presenting symptoms. PESI score 133, but for now patient will remain on med-surg unit as he otherwise appears hemodynamically stable and does not currently have evidence of right heart strain. No indication for thrombolysis at this time, especially given patient's age and current stability. Patient has an unclear allergy/intolerance to multiple anticoagulants and was thus started on fondaparinux for initial anticoagulation. Will transition patient to apixaban and have discussed at great lengths the importance of compl iance with this medication. Qualifiers: Pulmonary embolism type: saddle Chronicity: acute (3) Atrial fibrillation with RVR Conclusion/Plan: New onset a-fib with RVR, likely due to saddle PE. TSH levels normal. Troponin elevated overnight, but likely due to demand ischemia and CHF exacerbation. Initiated oral metoprolol yesterday. Patient adamantly believes that his CHF exacerbation and dyspnea is due to "an allergy to that pill," meaning the oral metoprolol. He does not presently have an allergy or even a sensitivity to oral metoprolol, which we have tried to explain to him on several occasions. At present, he is reluctantly willing to take the medication, but there is concern about compliance following discharge. His home brim curler and PCP (and ) have all been informed of the plan, his feelings, and our medical advice. Today, HR down to low 100's from prior 130's yesterday. Will continue to reassess and reinforce teaching. (4) CHF (congestive heart failure) Conclusion/Plan: CXR from this afternoon shows worsening pulmonary edema. Patient with RR in 30's this afternoon and increased wheezing and crackles on exam. IV furosemide initiated. The patient also states he is "allergic" to furosemide, "but only the pill, not when it's in the IV." Again, like metoprolol, he is not allergic to furosemide nor does he appear to have any sensitivity to it. We discussed this in detail with him and with his . Discharge today was cancelled due to worsening respiratory distress, but will tentatively plan to DC tomorrow in the hopes that he responds positively to the Lasix. Qualifiers: Heart failure type: systolic Heart failure chronicity: acute on chronic Qualified Code(s): I50.23 - Acute on chronic systolic (congestive) heart failure (5) COPD (chronic obstructive pulmonary disease) Conclusion/Plan: Patient is not currently experiencing COPD exacerbation. Albuterol inhaler available as needed. PRN nebs available and respiratory therapist following. Qualifiers: COPD type: unspecified COPD Qualified Code(s): J44.9 - Chronic obstructive pulmonary disease, unspecified (6) Chronic back pain Conclusion/Plan: Not currently in an acute flare. Tylenol ordered and available as needed for discomfort. (7) Generalized weakness Conclusion/Plan: Patient states that he has a walker at home, but does not use it. He reports "walking like he's drunk" recently, but denies falling or safety concerns. He seems to be an unreliable historian. May be experiencing acute weakness due to PE. Will encourage ambulation with nursing staff and order PT if needed. (8) Diabetes mellitus Conclusion/Plan: On Glimeperide at home. This will be held during this admission and will instead initiate sliding scale coverage while inpatient. Qualifiers: Diabetes mellitus type: type 2 Diabetes mellitus shelter insulin use: without intermediate school teacher use Diabetes mellitus complication status: with kidney complications Diabetes mellitus complication detail: with nephropathy Qualified Code(s): E11.21 - Type 2 diabetes mellitus with diabetic nephropathy Qualifiers: Pulmonary embolism type: saddle Chronicity: acute
[2021-04-27] MEDS: FORMOTEROL FUMARATE NEB 20 MCG/2 ML INH SCH (19:30)
[2021-04-27] MEDS: BUDESONIDE 0.5 MG/2 ML NEB INH SCH (19:30)
[2021-04-28] MEDS: SODIUM CHLORIDE FLUSH 0.9% 10 ML SYRINGE IVP SCH ×3 (01:13→17:13)
[2021-04-28] MEDS: HYDROCORTISONE 1% CREAM 28 GM TUBE TOP SCH ×3 (01:13→21:05)
[2021-04-28 06:49] LABS: BASOPHILS % (AUTO) 0.2 %; EOSINOPHILS % (AUTO) 0.5 %; HCT - HEMATOCRIT 35.2 % (42.0-52.0); HGB - HEMOGLOBIN 11.8 g/dL (14.0-18.0); LYMPHOCYTES % (AUTO) 22.4 %; MEAN CORPUSCULAR HEMOGLOBIN 30.4 pg (27.0-31.0); MEAN CORPUSCULAR HGB CONC 33.5 g/dL (32.0-36.0); MEAN CORPUSCULAR VOLUME 90.7 fL (80.0-94.0); MEAN PLATELET VOLUME 10.2 fL (7.4-11.4); MONOCYTES % (AUTO) 14.8 %; NEUTROPHILS % (AUTO) 56.7 %; PLT - PLATELET COUNT 197 10^3/uL (130-450); RED BLOOD COUNT 3.88 10^6/uL (4.70-6.10); RED CELL DISTRIBUTION WIDTH 13.6 % (12.0-15.0); WHITE BLOOD COUNT 6.5 x10^3/uL (4.8-10.8)
[2021-04-28 06:57] LABS: CALCIUM 8.6 mg/dL (8.5-10.3); CREATININE 2.6 mg/dL (0.6-1.2); POTASSIUM 4.8 mmol/L (3.5-5.0)
[2021-04-28 07:04] LABS: ABNORMAL LYMPHS % (MANUAL) 0 %; BAND NEUTROPHILS % (MANUAL) 0 %
[2021-04-28 07:36] LABS: BASOPHILS # (MANUAL) 0.1 10^3/uL (0-0.1); BASOPHILS % (MANUAL) 1 %; LYMPHOCYTES # (MANUAL) 1.6 10^3/uL (1.5-3.5); LYMPHOCYTES % (MANUAL) 24 %; NEUTROPHILS # (MANUAL) 3.9 10^3/uL (1.5-6.6)
[2021-04-28 07:37] LABS: DIFFERENTIAL COMMENT MANUAL DIFFERENTIAL; PLATELET ESTIMATE, MANUAL NORMAL (130-450,000) (NORMAL); PLATELET MORPHOLOGY NORMAL APPEARANCE (NORMAL); RBC MORPHOLOGY (MULTIPLE) NORMAL APPEARANCE (NORMAL); WBC MORPHOLOGY (MULTIPLE) NORMAL APPEARANCE (NORMAL)
[2021-04-28] MEDS: INSULIN ASPART 300 UNIT/3 ML PEN SUBQ SCH ×8 (07:39→21:55)
[2021-04-28] MEDS: BUDESONIDE 0.5 MG/2 ML NEB INH SCH ×2 (08:00→19:19)
[2021-04-28] MEDS: FORMOTEROL FUMARATE NEB 20 MCG/2 ML INH SCH ×2 (08:00→19:19)
[2021-04-28] MEDS: ALBUTEROL NEB 2.5 MG/3 ML INH PRN ×3 (08:00→19:19)
[2021-04-28] MEDS: APIXABAN 5 MG TABLET PO SCH ×2 (08:32→21:05)
[2021-04-28] MEDS: polyethylene glycoL 3350 17 GM PACKET PO SCH (08:56)
[2021-04-28] MEDS: METOPROLOL TARTRATE 25 MG TABLET PO SCH ×2 (08:56→21:06)
--- NOTE | 2021-04-28 11:10 | PROVIDER PROGRESS NOTE ---
Subjective - Prog Note Date Prog Note Date: 04/28/21 Prog Note Time: 11:08 - Subjective Pt reports feeling: Improved (Patient reports feeling much better today and states he is experiencing less respiratory distress.) Objective - Vital Signs/Intake & Output Vital Signs: Vital Signs x48h Temp Pulse Pulse Resp BP Pulse Ox 04/28/21 08:00 106 H 20 04/28/21 07:18 36.4 C L 96 20 135/68 H 98 04/28/21 05:00 36.6 C 95 22 119/67 96 Intake & Output: Intake & Output 04/25/21 04/26/21 04/27/21 04/28/21 23:59 23:59 23:59 23:59 Intake Total 590 610 Output Total 250 425 325 Balance 340 185 -325 - Objective General Appearance: positive: No acute distress, Alert Eyes Bilateral: positive: Normal inspection ENT: positive: ENT inspection nml Neck: positive: Nml inspection Respiratory: positive: Wheezes, Rhonchi (Improved from yesterday) Cardiovascular: positive: Irregularly irregular (In and out of a-fib per nursing report) Abdomen: positive: Non-tender, Nml bowel sounds, No distention Skin: positive: Color nml, No rash, Warm, Dry Extremities: positive: Non-tender Neurologic/Psychiatric: positive: Oriented x3, Mood/affect nml - Lab Results Fish Bones: 04/28/21 06:37 04/28/21 06:37 Other Labs: Lab Results x24hrs 04/28/21 04/28/21 04/28/21 Range/Units 07:17 06:37 06:37 WBC 6.5 (4.8-10.8) x10^3/uL RBC 3.88 L (4.70-6.10) 10^6/uL Hgb 11.8 L (14.0-18.0) g/dL Hct 35.2 L (42.0-52.0) % MCV 90.7 (80.0-94.0) fL MCH 30.4 (27.0-31.0) pg MCHC 33.5 (32.0-36.0) g/dL RDW 13.6 (12.0-15.0) % Plt Count 197 (130-450) 10^3/uL MPV 10.2 (7.4-11.4) fL Neut # (Auto) Not Reportable Lymph # (Auto) Not Reportable [place] # (Auto) Not Reportable Eos # (Auto) Not Reportable Baso # (Auto) Not Reportable Absolute Nucleated RBC Not Reportable Total Counted 100 Band Neuts % (Manual) 0 (0 - 10) % Abnorm Lymph % (Manual) 0 % Nucleated RBC % Not Reportable Neutrophils # (Manual) 3.9 (1.5-6.6) 10^3/uL Lymphocytes # (Manual) 1.6 (1.5-3.5) 10^3/uL Monocytes # (Manual) 1.0 (0.0-1.0) 10^3/uL Eosinophils # (Manual) 0.0 (0-0.7) 10^3/uL Basophils # (Manual) 0.1 (0-0.1) 10^3/uL Differential Comment MANUAL DIFFERENTIAL WBC Morphology NORMAL APPEARANCE (NORMAL) Platelet Estimate NORMAL (130-450,000) (NORMAL) Platelet Morphology NORMAL APPEARANCE (NORMAL) RBC Morph Micro Appear NORMAL APPEARANCE (NORMAL) Sodium 132 L (135-145) mmol/L Potassium 4.8 (3.5-5.0) mmol/L Chloride 95 L (101-111) mmol/L Carbon Dioxide 24 (21-32) mmol/L Anion Gap 13.0 (6-13) BUN 52 H (6-20) mg/dL Creatinine 2.6 H (0.6-1.2) mg/dL Estimated GFR (MDRD) 24 L (>89) Glucose 137 H (70-100) mg/dL POC Whole Bld Glucose 139 H (70 - 100) mg/dL Calcium 8.6 (8.5-10.3) mg/dL Troponin I High Sens (2.3-19.7) ng/L 04/27/21 04/27/21 04/27/21 Range/Units 20:47 18:23 16:37 WBC (4.8-10.8) x10^3/uL RBC (4.70-6.10) 10^6/uL Hgb (14.0-18.0) g/dL Hct (42.0-52.0) % MCV (80.0-94.0) fL MCH (27.0-31.0) pg MCHC (32.0-36.0) g/dL RDW (12.0-15.0) % Plt Count (130-450) 10^3/uL MPV (7.4-11.4) fL Neut # (Auto) Lymph # (Auto) [place] # (Auto) Eos # (Auto) Baso # (Auto) Absolute Nucleated RBC Total Counted Band Neuts % (Manual) (0 - 10) % Abnorm Lymph % (Manual) % Nucleated RBC % Neutrophils # (Manual) (1.5-6.6) 10^3/uL Lymphocytes # (Manual) (1.5-3.5) 10^3/uL Monocytes # (Manual) (0.0-1.0) 10^3/uL Eosinophils # (Manual) (0-0.7) 10^3/uL Basophils # (Manual) (0-0.1) 10^3/uL Differential Comment WBC Morphology (NORMAL) Platelet Estimate (NORMAL) Platelet Morphology (NORMAL) RBC Morph Micro Appear (NORMAL) Sodium (135-145) mmol/L Potassium (3.5-5.0) mmol/L Chloride (101-111) mmol/L Carbon Dioxide (21-32) mmol/L Anion Gap (6-13) BUN (6-20) mg/dL Creatinine (0.6-1.2) mg/dL Estimated GFR (MDRD) (>89) Glucose (70-100) mg/dL POC Whole Bld Glucose 219 H 205 H (70 - 100) mg/dL Calcium (8.5-10.3) mg/dL Troponin I High Sens 114.9 H* (2.3-19.7) ng/L 04/27/21 Range/Units 16:11 WBC (4.8-10.8) x10^3/uL RBC (4.70-6.10) 10^6/uL Hgb (14.0-18.0) g/dL Hct (42.0-52.0) % MCV (80.0-94.0) fL MCH (27.0-31.0) pg MCHC (32.0-36.0) g/dL RDW (12.0-15.0) % Plt Count (130-450) 10^3/uL MPV (7.4-11.4) fL Neut # (Auto) Lymph # (Auto) [place] # (Auto) Eos # (Auto) Baso # (Auto) Absolute Nucleated RBC Total Counted Band Neuts % (Manual) (0 - 10) % Abnorm Lymph % (Manual) % Nucleated RBC % Neutrophils # (Manual) (1.5-6.6) 10^3/uL Lymphocytes # (Manual) (1.5-3.5) 10^3/uL Monocytes # (Manual) (0.0-1.0) 10^3/uL Eosinophils # (Manual) (0-0.7) 10^3/uL Basophils # (Manual) (0-0.1) 10^3/uL Differential Comment WBC Morphology (NORMAL) Platelet Estimate (NORMAL) Platelet Morphology (NORMAL) RBC Morph Micro Appear (NORMAL) Sodium (135-145) mmol/L Potassium (3.5-5.0) mmol/L Chloride (101-111) mmol/L Carbon Dioxide (21-32) mmol/L Anion Gap (6-13) BUN (6-20) mg/dL Creatinine (0.6-1.2) mg/dL Estimated GFR (MDRD) (>89) Glucose (70-100) mg/dL POC Whole Bld Glucose (70 - 100) mg/dL Calcium (8.5-10.3) mg/dL Troponin I High Sens 113.1 H* (2.3-19.7) ng/L - Diagnostic Imaging Diagnostic Imaging Results: positive: Final report reviewed (CXR reviewed) Assessment/Plan - Problem List (1) Acute respiratory failure with hypoxia Impression: Patient with acute respiratory decompensation yesterday afternoon with RR 38 and increased oxygen demands. Troponins rechecked and appeared to be downtrending, elevated cause likely due to demand ischemia r/t increased HR and PE. CXR ordered showing increased pulmonary edema. We considered that there may have been progression of his PE but decided not to order a second CTA since addition al imaging would not change our management plan. Furosemide initiated, as we are contributing this acute respiratory failure to CHF exacerbation at this time. Patient is improved from yesterday. He is not in respiratory distress and doing well on 2L O2. His saturation dropped to 85% after the patient removed his oxygen this morning to shower. He is back on 2L now and will likely need a walking saturation test prior to discharge. (2) Pulmonary emboli Impression: Conclusion/Plan: CT scan on admission revealed bilateral saddle pulmonary emboli within the main pulmonary arteries. PE likely provoked by recent long car ride as patient and his drove up from [place] this week prior to presenting symptoms. PESI score 133, but for now patient will remain on med-surg unit as he otherwise appears hemodynamically stable and does not currently have evidence of right heart strain. No indication for thrombolysis at this time, especially given patient's age and current stability. Patient has an unclear allergy/intolerance to multiple anticoagulants and was thus started on fondaparinux for initial anticoagulation. Will transition patient to apixaban and have discussed at great lengths the importance of compliance with this medication. This morning, Mr. Rojas initially refused apixaban stating it is the reason for his respiratory distress. Dr. Gambino provided additional counseling and patient reluctantly agreed to take the medicine this morning. There is major concern about medication compliance upon discharge. Qualifiers: Pulmonary embolism type: saddle Chronicity: acute (3) Atrial fibrillation with RVR Conclusion/Plan: New onset a-fib with RVR, likely due to saddle PE. TSH levels normal. Troponin elevated yesterday but likely due to demand ischemia and CHF exacerbation. Initiated oral metoprolol. Patient adamantly believes that his CHF exacerbation and dyspnea is due to "an allergy to that pill," meaning the oral metoprolol. He does not presently have an allergy or even a sensitivity to metoprolol, which we have explained to him on several occasions. At present, he is reluctantly willing to take the medication, but there is concern about compliance following discharge. His home operations logistics analyst and PCP (and ) have all been informed of the plan, his feelings, and our medical advice. Today, HR down to low 90's, now in sinus rhythm. Will continue to reassess and reinforce teaching. (4) CHF (congestive heart failure) Conclusion/Plan: CXR from yesterday afternoon shows worsening pulmonary edema. Patient with RR in 30's yesterday and increased wheezing and crackles. IV furosemide initiated. The patient also states he is "allergic" to furosemide, "but only the pill, not when it's in the IV." Again, like metoprolol, he is not allergic to furosemide nor does he appear to have any sensitivity to it. We discussed this in detail with him and with his . Discharge yesterday was cancelled due to worsening respiratory distress, but will tentatively plan to DC tomorrow in the hopes that he continues to respond positively to the Lasix. Qualifiers: Heart failure type: systolic Heart failure chronicity: acute on chronic Qualified Code(s): I50.23 - Acute on chronic systolic (congestive) heart failure (5) COPD (chronic obstructive pulmonary disease) Conclusion/Plan: Patient is not currently experiencing COPD exacerbation. Albuterol inhaler available as needed. PRN nebs available and respiratory therapist following. Qualifiers: COPD type: unspecified COPD Qualified Code(s): J44.9 - Chronic obstructive pulmonary disease, unspecified (6) Chronic back pain Conclusion/Plan: Not currently in an acute flare. Tylenol ordered and available as needed for discomfort. (7) Generalized weakness Conclusion/Plan: Patient states that he has a walker at home, but does not use it. Will encourage ambulation with nursing staff and order PT if needed. (8) Diabetes mellitus Conclusion/Plan: On Glimeperide at home. Sliding scale coverage while inpatient. Qualifiers: Diabetes mellitus type: type 2 Diabetes mellitus health policy nurse insulin use: without health policy nurse use Diabetes mellitus complication status: with kidney complications Diabetes mellitus complication detail: with nephropathy Qualified Code(s): E11.21 - Type 2 diabetes mellitus with diabetic nephropathy (9) Acute on chronic kidney injury Conclusion/Plan: Laboratory Tests 04/26/21 04/26/21 04/27/21 02:55 05:57 06:18 BUN 28 H 28 H 36 H Creatinine 1.6 H 1.6 H 2.0 H 04/28/21 06:37 BUN 52 H Creatinine 2.6 H Patient's BUN and creatinine have steadily increased since admission. This is most likely due to receiving IV furosemide which was required to treat his worsening pulmonary edema 2/2 CHF. He received a total of 80mg IV furosemide yesterday; today we are treating him more conservatively given worsening renal status. We planned to hold furosemide today, but the patient insists that he needs another dose and states he feels that his CHF exacerbation is causing today's breathing difficulty. In respecting the patient's physical autonomy, we have given a total of 20mg IV furosemide. Will continue to balance treatment needs with clinical picture of worsening renal status in the setting of acute CHF exacerbation and pulmonary edema. Will recheck labs tomorrow morning.
[2021-04-28] MEDS ORDERED: MAGNESIUM HYDROXIDE 2,400 MG/30 ML UDC PO ONE (14:44)
[2021-04-28] MEDS ORDERED: SIMETHICONE CHEW 80 MG TABLET PO PRN (14:55)
[2021-04-28] MEDS: FUROSEMIDE 20 MG/2 ML VIAL IVP SCH (14:59)
[2021-04-28] MEDS: SODIUM CHLORIDE FLUSH 0.9% 10 ML SYRINGE IVP PRN (15:02)
[2021-04-28] MEDS: DOCUSATE SODIUM 250 MG CAPSULE PO SCH (21:04)
[2021-04-28] MEDS: SENNA 8.6 MG TABLET PO SCH (21:04)
[2021-04-29] MEDS: SODIUM CHLORIDE FLUSH 0.9% 10 ML SYRINGE IVP SCH ×3 (00:41→18:28)
[2021-04-29] MEDS: ALBUTEROL NEB 2.5 MG/3 ML INH PRN ×2 (06:13→15:21)
[2021-04-29] MEDS: BUDESONIDE 0.5 MG/2 ML NEB INH SCH ×2 (06:13→18:18)
[2021-04-29] MEDS: FORMOTEROL FUMARATE NEB 20 MCG/2 ML INH SCH ×2 (06:13→18:18)
[2021-04-29 09:24] LABS: BASOPHILS % (AUTO) 0.4 %; EOSINOPHILS % (AUTO) 0.8 %; HCT - HEMATOCRIT 31.9 % (42.0-52.0); HGB - HEMOGLOBIN 10.8 g/dL (14.0-18.0); LYMPHOCYTES # (AUTO) 0.8 10^3/uL (1.5-3.5); LYMPHOCYTES % (AUTO) 16.6 %; MEAN CORPUSCULAR HEMOGLOBIN 30.5 pg (27.0-31.0); MEAN CORPUSCULAR HGB CONC 33.9 g/dL (32.0-36.0); MEAN CORPUSCULAR VOLUME 90.1 fL (80.0-94.0); MEAN PLATELET VOLUME 10.3 fL (7.4-11.4); MONOCYTES # (AUTO) 0.7 10^3/uL (0.0-1.0); MONOCYTES % (AUTO) 14.7 %; NEUTROPHILS # (AUTO) 2.8 10^3/uL (1.5-6.6); NEUTROPHILS % (AUTO) 59.5 %; PLT - PLATELET COUNT 182 10^3/uL (130-450); RED BLOOD COUNT 3.54 10^6/uL (4.70-6.10); RED CELL DISTRIBUTION WIDTH 13.3 % (12.0-15.0); WHITE BLOOD COUNT 4.8 x10^3/uL (4.8-10.8)
[2021-04-29 09:38] LABS: CALCIUM 8.6 mg/dL (8.5-10.3); CREATININE 2.1 mg/dL (0.6-1.2); POTASSIUM 4.3 mmol/L (3.5-5.0)
--- NOTE | 2021-04-29 09:51 | PROVIDER PROGRESS NOTE ---
Subjective - Prog Note Date Prog Note Date: 04/29/21 Prog Note Time: 09:49 - Subjective Pt reports feeling: Worse (Patient states he feels "like he's shutting down and starting to .") Objective - Vital Signs/Intake & Output Vital Signs: Vital Signs x48h Temp Pulse Pulse Resp BP Pulse Ox 04/29/21 07:36 36.6 C 96 20 114/54 L 92 04/29/21 06:14 107 H 18 04/29/21 04:15 36.4 C L 99 20 113/80 94 Intake & Output: Intake & Output 04/26/21 04/27/21 04/28/21 04/29/21 23:59 23:59 23:59 23:59 Intake Total 590 610 930 200 Output Total 250 425 725 400 Balance 340 185 205 -200 - Objective General Appearance: positive: Alert, Mild distress ENT: positive: ENT inspection nml Neck: positive: Nml inspection Respiratory: positive: Wheezes, Other (mild crackles, diminished bases bilaterally) Cardiovascular: positive: Regular rate & rhythm Abdomen: positive: Non-tender, Nml bowel sounds Skin: positive: Color nml, No rash, Warm, Dry Extremities: positive: Non-tender Neurologic/Psychiatric: positive: Oriented x3 - Lab Results Fish Bones: 04/29/21 08:59 04/29/21 08:59 Other Labs: Lab Results x24hrs 04/29/21 04/29/21 04/29/21 Range/Units 08:59 08:59 07:29 WBC 4.8 (4.8-10.8) x10^3/uL RBC 3.54 L (4.70-6.10) 10^6/uL Hgb 10.8 L (14.0-18.0) g/dL Hct 31.9 L (42.0-52.0) % MCV 90.1 (80.0-94.0) fL MCH 30.5 (27.0-31.0) pg MCHC 33.9 (32.0-36.0) g/dL RDW 13.3 (12.0-15.0) % Plt Count 182 (130-450) 10^3/uL MPV 10.3 (7.4-11.4) fL Neut # (Auto) 2.8 (1.5-6.6) 10^3/uL Lymph # (Auto) 0.8 L (1.5-3.5) 10^3/uL [place] # (Auto) 0.7 (0.0-1.0) 10^3/uL Eos # (Auto) 0.0 (0.0-0.7) 10^3/uL Baso # (Auto) 0.0 (0.0-0.1) 10^3/uL Absolute Nucleated RBC 0.00 x10^3/uL Nucleated RBC % 0.0 /100WBC Sodium 137 (135-145) mmol/L Potassium 4.3 (3.5-5.0) mmol/L Chloride 100 L (101-111) mmol/L Carbon Dioxide 24 (21-32) mmol/L Anion Gap 13.0 (6-13) BUN 58 H (6-20) mg/dL Creatinine 2.1 H (0.6-1.2) mg/dL Estimated GFR (MDRD) 30 L (>89) Glucose 178 H (70-100) mg/dL POC Whole Bld Glucose 172 H (70 - 100) mg/dL Calcium 8.6 (8.5-10.3) mg/dL 04/28/21 04/28/21 04/28/21 Range/Units 20:54 16:31 11:10 WBC (4.8-10.8) x10^3/uL RBC (4.70-6.10) 10^6/uL Hgb (14.0-18.0) g/dL Hct (42.0-52.0) % MCV (80.0-94.0) fL MCH (27.0-31.0) pg MCHC (32.0-36.0) g/dL RDW (12.0-15.0) % Plt Count (130-450) 10^3/uL MPV (7.4-11.4) fL Neut # (Auto) (1.5-6.6) 10^3/uL Lymph # (Auto) (1.5-3.5) 10^3/uL [place] # (Auto) (0.0-1.0) 10^3/uL Eos # (Auto) (0.0-0.7) 10^3/uL Baso # (Auto) (0.0-0.1) 10^3/uL Absolute Nucleated RBC x10^3/uL Nucleated RBC % /100WBC Sodium (135-145) mmol/L Potassium (3.5-5.0) mmol/L Chloride (101-111) mmol/L Carbon Dioxide (21-32) mmol/L Anion Gap (6-13) BUN (6-20) mg/dL Creatinine (0.6-1.2) mg/dL Estimated GFR (MDRD) (>89) Glucose (70-100) mg/dL POC Whole Bld Glucose 273 H 258 H 250 H (70 - 100) mg/dL Calcium (8.5-10.3) mg/dL - Diagnostic Imaging Diagnostic Imaging Results: positive: Final report reviewed (CXR and tele strips reviewed) Assessment/Plan - Problem List (1) Acute respiratory failure with hypoxia Impression: Patient with acute respiratory decompensation two days ago with RR 38 and increased oxygen demands. We considered that there may have been progression of his PE but decided not to order a second CTA since additional imaging would not change our management plan. Furosemide initiated as treatment for CHF exacerbation. Patient has demonstrated clinical improvement since then and was satting in the low 90's on 1L O2 overnight. This morning he is feeling worse and feels like this is "his time to " and he states that he "is ready to ". On exam he was mildly tachypneic on room air with guppy breathing and requested to be placed back on nasal cannula for comfort. He will need a walking saturation test prior to discharge. Discussed with patient and his that we will plan to have a meeting together later this afternoon to discuss the most realistic next steps in terms of disposition and potential hospice referral after the patient expressed very clearly this morning that he feels he has begun the process and would like to be kept comfortable going forward. Please see associated document under Advanced Care Planning. (2) Pulmonary emboli Impression: Conclusion/Plan: Bilateral saddle pulmonary emboli within the main pulmonary arteries on admission CT. PE likely provoked by recent long car ride from [place]. PESI score 133, without evidence of right heart strain. No indication for thrombolysis, especially given patient's age. Patient has an unclear allergy/intolerance to multiple anticoagulants and was thus started on fondaparinux for initial anticoagulation. Transitioned patient to apixaban and have discussed at great lengths the importance of compliance wit h this medication. There is major concern about medication compliance upon discharge, though today he states "it might be okay" to take the apixaban since "it hasn't made me feel bad just yet." (3) Atrial fibrillation with RVR Conclusion/Plan: New onset a-fib with RVR on admission, likely due to saddle PE. Initiated oral metoprolol, but patient is now refusing this and wants to take only his home medication instead, Corlanor. He is currently back in sinus rhythm. His home casualty underwriter and PCP (and ) have all been informed of his feelings and our medical advice. (4) CHF (congestive heart failure) Conclusion/Plan: CXR from 04/27/21 showed worsening pulmonary edema in the setting of acute respiratory distress. IV furosemide initiated, and he has since improved. While he may benefit from more furosemide, we are being conservative given his elevated BUN and creatinine. (5) COPD (chronic obstructive pulmonary disease) Conclusion/Plan: Patient is not currently experiencing COPD exacerbation. Albuterol inhaler a vailable as needed. PRN nebs available and respiratory therapist following. (6) Chronic back pain Conclusion/Plan: Not currently in an acute flare. Tylenol ordered and available as needed for discomfort. (7) Generalized weakness Conclusion/Plan: Patient states that he has a walker at home, but does not use it. Will encourage ambulation with nursing staff and order PT if needed. (8) Diabetes mellitus Conclusion/Plan: On Glimeperide at home. Sliding scale coverage while inpatient. (9) Acute on chronic kidney injury Conclusion/Plan: Patient's BUN and creatinine have steadily increased since admission, likely d/t receiving IV furosemide which was required to treat his worsening pulmonary edema 2/2 CHF. He received a total of 80mg IV furosemide on 04/27 and 20mg on 04/28. We plan to hold furosemide today. Will continue to balance treatment needs with clinical picture of worsening renal status in the setting of acute CHF exacerbation and pulmonary edema.
[2021-04-29] MEDS: APIXABAN 5 MG TABLET PO SCH ×2 (10:05→21:33)
[2021-04-29] MEDS: SENNA 8.6 MG TABLET PO SCH (10:05)
[2021-04-29] MEDS: DOCUSATE SODIUM 250 MG CAPSULE PO SCH (10:05)
[2021-04-29] MEDS: INSULIN ASPART 300 UNIT/3 ML PEN SUBQ SCH ×8 (10:07→22:01)
[2021-04-29] MEDS: HYDROCORTISONE 1% CREAM 28 GM TUBE TOP SCH ×2 (10:10→21:38)
[2021-04-29] MEDS: polyethylene glycoL 3350 17 GM PACKET PO SCH (10:15)
[2021-04-29] MEDS: METOPROLOL TARTRATE 25 MG TABLET PO SCH ×2 (10:15→21:35)
[2021-04-29] MEDS: FUROSEMIDE 20 MG/2 ML VIAL IVP SCH (11:16)
--- NOTE | 2021-04-29 17:08 | ADVANCE CARE PLANNING NOTE ---
Advance Care Planning - Planning Encounter Date: 04/29/21 Time: 16:00 Purpose: To establish goals of care and to coordinate with patient and family to facilitate wishes Parties in Attendance: Patient (for part of discussion), Dr. Gambino, DNP student Lary Whitman, Beatrice Rojas(patient's ), patient's step-son Shailesh. Decisional Capacity of the Patient: Able to make decisions regarding care - Diagnosis for Encounter (1) Acute respiratory failure with hypoxia Summary: Patient with acute respiratory decompensation two days ago with RR 38 and increased oxygen demands. We considered that there may have been progression of his PE but decided not to order a second CTA since additional imaging would not change our management plan. Furosemide initiated as treatment for CHF exacerbation. Patient has demonstrated clinical improvement since then and was satting in the low 90's on 1L O2 overnight. This morning he is feeling worse and feels like this is "his time to " and he states that he "is ready to ". On exam he was mildly tachypneic on room air with guppy breathing and requested to be placed back on nasal cannula for comfort. He will need a walking saturation test prior to discharge. Discussed with patient and his that we will plan to have a meeting together later this afternoon to discuss the most realistic next steps in terms of disposition and potential hospice referral after the patient expressed very clearly this morning that he feels he has begun the process and would like to be kept comfortable going forward. (2) Pulmonary emboli Impression: Conclusion/Plan: Bilateral saddle pulmonary emboli within the main pulmonary arteries on admission CT. PE likely provoked by recent long car ride from [place]. PESI score 133, without evidence of right heart strain. No indication for thrombolysis, especially given patient's age. Patient has an unclear allergy/intolerance to multiple anticoagulants and was thus started on fondaparinux for initial anticoagulation. Transitioned patient to apixaban and have discussed at great lengths the importance of compliance with this medication. There is major concern about medication compliance upon discharge, though today he states "it might be okay" to take the apixaban since "it hasn't made me feel bad just yet." (3) Atrial fibrillation with RVR Conclusion/Plan: New onset a-fib with RVR on admission, likely due to saddle PE. Initiated oral metoprolol, but patient is now refusing this and wants to take only his home medication instead, Corlanor. He is currently back in sinus rhythm. His home electrical electronics technician and PCP (and ) have all been informed of his feelings and our medical advice. (4) CHF (congestive heart failure) Conclusion/Plan: CXR from 04/27/21 showed worsening pulmonary edema in the setting of acute respiratory distress. IV furosemide initiated, and he has since improved. While he may benefit from more furosemide, we are being conservative given his elevated BUN and creatinine. (5) COPD (chronic obstructive pulmonary disease) Conclusion/Plan: Patient is not currently experiencing COPD exacerbation. Albuterol inhaler available as needed. PRN nebs available and respiratory therapist following. (6) Chronic back pain Conclusion/Plan: Not currently in an acute flare. Tylenol ordered and available as needed for discomfort. (7) Generalized weakness Conclusion/Plan: Patient states that he has a walker at home, but does not use it. Will encourage ambulation with nursing staff and order PT if needed. (8) Diabetes mellitus Conclusion/Plan: On Glimeperide at home. Sliding scale coverage while inpatient. (9) Acute on chronic kidney injury Conclusion/Plan: Patient's BUN and creatinine have steadily increased since admission, likely d/t receiving IV furosemide which was required to treat his worsening pulmonary edema 2/2 CHF. He received a total of 80mg IV furosemide on 04/27 and 20mg on 04/28. We plan to hold furosemide today. Will continue to balance treatment needs with clinical picture of worsening renal status in the setting of acute CHF exacerbation and pulmonary edema. - Encounter Subjective/Patient's Story: The patient states he has been feeling "not his best" for some time now prior to hospitalization, though is unable to give an exact time frame. 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 Objective/Medical Story: The patient presented to the ED with shortness of breath and was found to have a saddle PE. While here, he developed a-fib with RVR that has since resolved. He also developed pulmonary edema that we attributed to CHF exacerbation and treated with furosemide. After receiving IV furosemide, he developed RAKEL, which complicated diuresis efforts. He continues to experience tachypnea, baseline respiratory distress, and general malaise. Goals of Care: Mr. Rojas clearly expressed that he no longer wishes to pursue aggressive medical care and that he would like to , ideally at home in [place]. We discussed that the logistics of him transporting back to [place] would be exceedingly complex and fraught with challenges for him and his family, but he insists that he "can make it" and would like to go back home. Once back in [place], he plans to enroll with hospice, arrange his finances, and in a mcfp. During a meeting this afternoon with the patient and his , Mr. Rojas re- stated his wishes to his and medical team. With his permission, we continu ed this conversation without Mr. Rojas in the family conference room with Mrs. Rojas and her son, Shailesh. Plan: The patient is listed as "do not resuscitate" status. Mrs. Rojas and her son would like to honor the patient's wishes and will be discussing the logistics of acquiring a motor home to transport the patient from [place] to [place]. The family understands that the patient may decompensate during this trip and will require a great deal of assistance with ADLs and toileting, and they state they will be prepared to attend his needs. We will provide them with a list of hospitals along the route of their trip home prior to discharge. We anticipate the patient will require supplemental oxygen at discharge and will plan for a walking sat test before that time. Code Status: Do Not Attempt Resuscitation Time spent on advance care plannin minutes
[2021-04-30] MEDS: SODIUM CHLORIDE FLUSH 0.9% 10 ML SYRINGE IVP SCH ×2 (00:23→12:19)
[2021-04-30] MEDS: ALBUTEROL NEB 2.5 MG/3 ML INH PRN ×3 (00:23→17:45)
[2021-04-30] MEDS: FORMOTEROL FUMARATE NEB 20 MCG/2 ML INH SCH (05:45)
[2021-04-30] MEDS: BUDESONIDE 0.5 MG/2 ML NEB INH SCH (05:45)
[2021-04-30 06:40] LABS: BASOPHILS % (AUTO) 0.4 %; EOSINOPHILS % (AUTO) 0.9 %; HCT - HEMATOCRIT 32.4 % (42.0-52.0); HGB - HEMOGLOBIN 10.6 g/dL (14.0-18.0); LYMPHOCYTES % (AUTO) 16.4 %; MEAN CORPUSCULAR HEMOGLOBIN 29.9 pg (27.0-31.0); MEAN CORPUSCULAR HGB CONC 32.7 g/dL (32.0-36.0); MEAN CORPUSCULAR VOLUME 91.5 fL (80.0-94.0); MEAN PLATELET VOLUME 9.9 fL (7.4-11.4); MONOCYTES % (AUTO) 13.4 %; NEUTROPHILS % (AUTO) 61.8 %; PLT - PLATELET COUNT 196 10^3/uL (130-450); RED BLOOD COUNT 3.54 10^6/uL (4.70-6.10); RED CELL DISTRIBUTION WIDTH 13.4 % (12.0-15.0); WHITE BLOOD COUNT 4.6 x10^3/uL (4.8-10.8)
[2021-04-30 06:45] LABS: ABNORMAL LYMPHS % (MANUAL) 0 %
[2021-04-30 06:47] LABS: CALCIUM 8.7 mg/dL (8.5-10.3); CREATININE 1.9 mg/dL (0.6-1.2); POTASSIUM 4.4 mmol/L (3.5-5.0)
[2021-04-30 08:27] LABS: BAND NEUTROPHILS % (MANUAL) 2 %; DIFFERENTIAL COMMENT MANUAL DIFFERENTIAL; LYMPHOCYTES # (MANUAL) 0.7 10^3/uL (1.5-3.5); LYMPHOCYTES % (MANUAL) 15 %; MONOCYTES # (MANUAL) 0.3 10^3/uL (0.0-1.0); NEUTROPHILS # (MANUAL) 3.5 10^3/uL (1.5-6.6)
[2021-04-30] MEDS: INSULIN ASPART 300 UNIT/3 ML PEN SUBQ SCH ×4 (09:49→12:19)
[2021-04-30] MEDS: DOCUSATE SODIUM 250 MG CAPSULE PO SCH (09:50)
[2021-04-30] MEDS: SENNA 8.6 MG TABLET PO SCH (09:51)
[2021-04-30] MEDS: APIXABAN 5 MG TABLET PO SCH (09:51)
[2021-04-30] MEDS: HYDROCORTISONE 1% CREAM 28 GM TUBE TOP SCH (09:54)
[2021-04-30] MEDS: METOPROLOL TARTRATE 25 MG TABLET PO SCH (11:24)
[2021-04-30] MEDS: polyethylene glycoL 3350 17 GM PACKET PO SCH (11:24)
[2021-04-30] MEDS: FUROSEMIDE 20 MG/2 ML VIAL IVP SCH (11:24)
--- NOTE | 2021-04-30 14:01 | PROVIDER PROGRESS NOTE ---
Subjective - Prog Note Date Prog Note Date: 04/30/21 Prog Note Time: 13:56 - Subjective Pt reports feeling: Improved (Patient reports feeling "a bit better today with the breathing." He continues to wish to at home and is looking forward to his family figuring out some logistics in order to make that happen.) Objective - Vital Signs/Intake & Output Vital Signs: Vital Signs x48h Temp Pulse Pulse Resp BP Pulse Ox 04/30/21 11:20 36.2 C L 85 20 130/68 98 04/30/21 10:22 92 04/30/21 07:36 36.6 C 86 22 109/53 L 94 Intake & Output: Intake & Output 04/27/21 04/28/21 04/29/21 04/30/21 23:59 23:59 23:59 23:59 Intake Total 232 827 1321 870 Output Total 682 235 9141 725 Balance 185 205 86 145 - Objective General Appearance: positive: No acute distress, Alert Respiratory: positive: Chest non-tender, Wheezes, Other (tachypneic, guppy breathng) Cardiovascular: positive: Regular rate & rhythm, No murmur, No gallop Abdomen: positive: Non-tender, Nml bowel sounds Skin: positive: Color nml, Warm, Dry Neurologic/Psychiatric: positive: Oriented x3, Sensation nml, Mood/affect nml - Lab Results Fish Bones: 04/30/21 06:30 04/30/21 06:30 Other Labs: Lab Results x24hrs 04/30/21 04/30/21 04/30/21 Range/Units 11:18 07:35 06:30 WBC (4.8-10.8) x10^3/uL RBC (4.70-6.10) 10^6/uL Hgb (14.0-18.0) g/dL Hct (42.0-52.0) % MCV (80.0-94.0) fL MCH (27.0-31.0) pg MCHC (32.0-36.0) g/dL RDW (12.0-15.0) % Plt Count (130-450) 10^3/uL MPV (7.4-11.4) fL Neut # (Auto) Lymph # (Auto) [place] # (Auto) Eos # (Auto) Baso # (Auto) Absolute Nucleated RBC Total Counted Band Neuts % (Manual) (0 - 10) % Abnorm Lymph % (Manual) % Nucleated RBC % Neutrophils # (Manual) (1.5-6.6) 10^3/uL Lymphocytes # (Manual) (1.5-3.5) 10^3/uL Monocytes # (Manual) (0.0-1.0) 10^3/uL Eosinophils # (Manual) (0-0.7) 10^3/uL Basophils # (Manual) (0-0.1) 10^3/uL Differential Comment Sodium 137 (135-145) mmol/L Potassium 4.4 (3.5-5.0) mmol/L Chloride 100 L (101-111) mmol/L Carbon Dioxide 25 (21-32) mmol/L Anion Gap 12.0 (6-13) BUN 57 H (6-20) mg/dL Creatinine 1.9 H (0.6-1.2) mg/dL Estimated GFR (MDRD) 34 L (>89) Glucose 193 H (70-100) mg/dL POC Whole Bld Glucose 189 H 177 H (70 - 100) mg/dL Calcium 8.7 (8.5-10.3) mg/dL 04/30/21 04/29/21 04/29/21 Range/Units 06:30 20:44 17:06 WBC 4.6 L (4.8-10.8) x10^3/uL RBC 3.54 L (4.70-6.10) 10^6/uL Hgb 10.6 L (14.0-18.0) g/dL Hct 32.4 L (42.0-52.0) % MCV 91.5 (80.0-94.0) fL MCH 29.9 (27.0-31.0) pg MCHC 32.7 (32.0-36.0) g/dL RDW 13.4 (12.0-15.0) % Plt Count 196 (130-450) 10^3/uL MPV 9.9 (7.4-11.4) fL Neut # (Auto) Not Reportable Lymph # (Auto) Not Reportable [place] # (Auto) Not Reportable Eos # (Auto) Not Reportable Baso # (Auto) Not Reportable Absolute Nucleated RBC Not Reportable Total Counted 100 Band Neuts % (Manual) 2 (0 - 10) % Abnorm Lymph % (Manual) 0 % Nucleated RBC % Not Reportable Neutrophils # (Manual) 3.5 (1.5-6.6) 10^3/uL Lymphocytes # (Manual) 0.7 L (1.5-3.5) 10^3/uL Monocytes # (Manual) 0.3 (0.0-1.0) 10^3/uL Eosinophils # (Manual) 0.0 (0-0.7) 10^3/uL Basophils # (Manual) 0.0 (0-0.1) 10^3/uL Differential Comment MANUAL DIFFERENTIAL Sodium (135-145) mmol/L Potassium (3.5-5.0) mmol/L Chloride (101-111) mmol/L Carbon Dioxide (21-32) mmol/L Anion Gap (6-13) BUN (6-20) mg/dL Creatinine (0.6-1.2) mg/dL Estimated GFR (MDRD) (>89) Glucose (70-100) mg/dL POC Whole Bld Glucose 290 H 206 H (70 - 100) mg/dL Calcium (8.5-10.3) mg/dL Assessment/Plan - Problem List (1) Acute respiratory failure with hypoxia Impression: Patient with acute respiratory decompensation two days ago with RR 38 and increased oxygen demands. Furosemide initiated as treatment for CHF exacerbation. Patient has demonstrated clinical improvement since then, but continues to have dyspnea and mild labored breathing. Yesterday morning he relayed to us that he feels like this is "his time to " and he "is ready to ". On exam he remains mildly tachypneic on room air with guppy breathing and requested to be placed back on nasal cannula for comfort. Yesterday we discussed with patient, his , and his stepson about realistic goals to be discharged and to seek out hospice referral once he feels necessary. Please see associated document under Advanced Care Planning. It has since been decided that the patient will ultimately be discharged to the care of his at his stepson's home in [place]. We will be ordering home oxygen as well as a home nebulizer machine to administer Budesonide, Performist, & Albuterol to treat his COPD. Please see O2 needs assessment below: During walking saturation test today, the patient was not hypoxic at rest on room air with O2 sats at 92%. However, with ambulation on room air his O2 sats dropped to 87%. After placing the patient on 2Lpm nasal cannula, his O2 sats improved to 92%. I am ordering home O2, room air at rest and 2lpm with exertion to treat Mr. Rojas' PEs and resulting hypoxemia. (2) Pulmonary emboli Impression: Conclusion/Plan: Bilateral saddle pulmonary emboli within the main pulmonary arteries on admission CT. PE likely provoked by recent long car ride from [place]. PESI score 133, without evidence of right heart strain. No indication for thromb olysis, especially given patient's age. Patient has an unclear allergy/intolerance to multiple anticoagulants and was thus started on fondaparinux for initial anticoagulation. Transitioned patient t o apixaban and have discussed at great lengths the importance of compliance with this medication. There is major concern about medication compliance upon discharge, though he states "it might be okay" to take the apixaban since "it hasn't made me feel bad just yet." We have counseled him on medication compliance and its importance for this and other medications. Repeatedly. (3) Atrial fibrillation with RVR Conclusion/Plan: New onset a-fib with RVR on admission, likely due to saddle PE. Initiated oral metoprolol, but patient wants to take only his home medication instead, Corlanor. He is currently back in sinus rhythm. His home manager of hospital and PCP (and ) have all been informed of his feelings and our medical advice. He remains stable, but risks going back into a-fib d/t his PE and general respiratory distress. He states he is unconcerned about this and simply wishes to live long enough to see his daughter and say goodbye. (4) CHF (congestive heart failure) Conclusion/Plan: CXR from 04/27/21 showed worsening pulmonary edema in the setting of acute respiratory distress. IV furosemide initiated, and he improved but still has some pulmonary congestion. While he may benefit from more furosemide, we are being conservative given his elevated BUN and creatinine response to receiving diuretics. (5) COPD (chronic obstructive pulmonary disease) Conclusion/Plan: Albuterol inhaler available as needed. PRN nebs available and respiratory therapist following. See problem #1 in this note where we have addressed his pulmonary dispo needs. (6) Chronic back pain Conclusion/Plan: Not currently in an acute flare. Tylenol ordered and available as needed for discomfort. (7) Generalized weakness Conclusion/Plan: Patient states that he has a walker at home, but does not use it. His family state they will be able to assist him with toileting and physical needs at home upon discharge. (8) Diabetes mellitus Conclusion/Plan: On Glimeperide at home. Sliding scale coverage while inpatient. (9) Acute on chronic kidney injury Conclusion/Plan: Patient's BUN and creatinine increased after receiving IV furosemide which was required to treat his worsening pulmonary edema 2/2 CHF. He received a total of 80mg IV furosemide on 04/27 and 20mg on 04/28. We plan to hold furosemide going forward. Will continue to balance treatment needs with clinical picture as it is now redefined in the setting of the patient's wish for non-aggressive and comfort-oriented care going forward.
--- NOTE | 2021-04-30 16:47 | Discharge Plan ---
Discharge Plan Problem Reviewed?: Yes Disposition: Home, Self Care Condition: Fair Prescriptions: Apixaban [Eliquis] 10 mg PO BID #28 tablet Apixaban [Eliquis] 5 mg PO DAILY #30 tablet Diet: Cardiac Activity Restrictions: Activity as Tolerated Shower Restrictions: No Driving Restrictions: Yes (no driving) Health Concerns: You are a gentleman who has a long medical history. 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 Because of these intolerances, you are unable to take the standard medications for congestive heart failure. You also are unable to take the standard medications for blood thinners. Specifically you used to be on Plavix but refused to take it because it upset your stomach. The same for aspirin. You also state that you cannot take heparin or Lovenox or Xarelto. Some of these medications have given you "anaphylaxis, and other medications have just not made you feel good. After a long car drive from [place], you came to the hospital because you were having increasing shortness of breath. We found you have had a blood clot, several of them, to the lungs. This put a tremendous strain on your lungs and heart and major even more short of breath. You were unable to take Lovenox or heparin because of her previous statement of anaphylaxis. We gave you Arixtra. It is an injectable anticoagulant. We changed you to pill form, Eliquis. You were still having problems with shortness of breath, and you just in general felt miserable. We made sure you are not having a heart attack or stroke. We treated you for congestive failure and gave you IV Lasix at your request. You were very insistent that you did not want to take our medicines for congestive heart failure and only wanted to take your medication of Bumex, or Corlinor. After all of this, you have decided that you really want to go home so that you can start the process of passing away in your home town. You really do not want us to do any more measures here. Home is [place] so your family is instituting measures to get you safely home. he plan is for your children to drive you in an to [place]. After you safely get home, you are going to speak to your primary care provider, Dr. Saeed, to be placed in a convalescent home and maybe get Hospice if it is appropriate. We have provided you with oxygen, nebulizers and a nebulizer machine to help you breathe until you get home. Plan of Treatment: 1. We do think that you have memory loss and slowing down with aging. As such we are asking you not to drive anymore. And we are asking your to drive you home. 2. Because of your multiple drug intolerances, we are going to try Eliquis for blood thinning for the blood clot. You'll take 10 mg twice a day for a week. Then 5 mg twice a day thereafter. Drug thinners can cause internal bleeding, so please be careful with falling or hitting your head. If you have any blood in your nose, urine, or stool notify your doctor immediately. 3. Because of your inability to take medications that would prolong your life, I do feel that you have a shorter life span than most people do with your conditions. As a man of ned, you've already made numerous plans for the end of your life. You gave me an example that you would like to live in a convalescent home when your can no longer take care of you. You also tell me that your goal is to live long enough to see your new young dialysis tech in her sabianism be trained appropriately. There is a wonderful plans and have already been made. You have decided that you would like to move that timeline forward and would like to wait plans now. You do not want any further treatment for your heart or your lungs. You just want to be comfortable and see where God and mother nature take you. 4. Please see your primary care provider when you get back to [place]. They may need to adjust your medication. They also need to be brought up-to-date about what happened to you here in [place].. Care Goals: To be as comfortable as possible until the end of your life. Assessment: Patient and participated in advance care planning. Goals were set and they will follow through on those goals. No Smoking: If you smoke, Please STOP! Call for help.
[2021-04-30 17:58] VITALS: BP 148/65
--- NOTE | 2021-04-30 19:36 | DISCHARGE SUMMARY ---
Discharge Summary Admit Date: 04/26/21 Discharge Date: 04/30/21 Discharging Provider: Alla Gambino MD Primary Care Provider: Aguila Saeed MD [place], [place] Code Status: Do Not Attempt Resuscitation Condition at Discharge: Poor Discharge Disposition: 01 Home, Self Care - DIAGNOSES Discharge Diagnoses with Status of Each Condition: 1. Acute respiratory failure with hypoxia due to #2, #3, #4 2. Bilateral pulmonary emboli 3. Acute on chronic systolic heart failure 4. Atrial fibrillation with RVR, present on admission, resolved at discharge 5. COPD without acute exacerbation 6. Chronic back pain 7. 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 Acute on chronic kidney injury 9. Severe generalized weakness 10. Coronary artery disease 11. AICD status 12. Noncompliance with medication and healthcare plan 13. Cognitive deficits of aging - HPI History of Present Illness: Mr. Rojas presented to the ED overnight with shortness of breath and dyspnea on exertion. Unbeknownst to his immediate family, he and his drove from their home in [place] to visit his 's sons who live here in [place]. The patient is a poor historian and it is unclear exactly when his symptoms started. He states he "must have had these clots for a while" and provides an unclear history of trouble walking and breathing, which he is now contributing to "all these clots." According to his PCP office, family had previously requested his license to be revoked due to safety and memory concerns. He does endorse pleurisy and dyspnea but denies palpitations, chest pain, di zziness, or nausea/vomiting. He does not have any immediate concerns, and emphatically states that "I know I'm living on borrowed time, but I know where I'm going when the time comes- all things considered, I think I'm doing pretty good!". In the ED, chest CT revealed bilateral saddle emboli within the main pulmonary arteries, moderate left and small right pleural effusions, and an incidental finding of a 3.5cm adrenal nodule. Given his history of multiple medication allergies to anticoagulants, his parquet floor layer office was contacted to clarify reaction severity and history. Unfortunately, his parquet floor layer was out of the office and the office nurse was uncomfortable discussing patient details without the parquet floor layer present. Today, will we optimize medication management of his PEs, monitor for new hemodynamic instability, and address safety issues as able and appropriate. - Past Medical History Cardiovascular: reports: Congestive heart failure, Hypertension, Coronary artery disease, Peripheral Vascular Disease, [place]. denies: Deep vein thrombosis, Murmur, Arrhythmia Respiratory: reports: COPD, Shortness of breath. denies: Asthma, Cystic fibrosis, Tuberculosis Neuro: reports: Dementia, CVA. denies: Alzhiemer's, Cerebral palsy, Headaches, Migraines, Parkinson's, Seizure disorder, Tremors, Multiple sclerosis Endocrine/Autoimmune: reports: Type 2 diabetes. denies: Type 1 diabetes, HyPERthyroidism, Systemic lupus erythematosus GI: reports: Chronic constipation, Cholelithiasis, Other. denies: Esophageal varices, GI bleed, C.difficile, Chronic diarrhea, Hepatitis, Cirrhosis, Ulcerative colitis, Crohn's disease : reports: Benign prostate hypertrophy, Frequency, Other (urgency, dysuria). denies: Dialysis, Chronic bladder infection, Indwelling catheter HEENT: reports: Other (cataracts). denies: Glaucoma, Chronic sinusitis, Chronic hearing loss Psych: reports: None. denies: Depression, Anxiety, Bipolar disorder, Schizophrenia, Panic attacks, ADD/ADHD, Post traumatic stress disorder, Claustrophobia, Obsessive compulsive disorder, Eating disorder Musculoskeletal: reports: Osteoarthritis, Gout, Fatigue, Chronic back pain. denies: Fibromyalgia, Paraplegia, Quadriplegia, Hemiplegia, Scoliosis Derm: reports: Psoriasis. 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 Chest x-ray with interstitial prominence, without cardiomegaly. Possibly cardiogenic pulmonary edema versus reflection of prior smoking history. A pacemaking device, leads etc. appear free of disruption. Prior sternotomy. Chest thorax CT angiogram with bilateral pulmonary emboli, nonocclusive. COPD with superimposed mild pulmonary edema. Bilateral pleural effusions, small on the right and small to moderate on the left. Low ovoid density sharply dem arcated with a right adrenal nodule presumably an adrenal adenoma. If clinically indicated an MRI would be done. Venous duplex of the lower extremity without a right-sided DVT but there is a popliteal vein partially occlusive eccentric DVT at the knee level. Repeat chest x-ray had interval development of scattered alveolar opacities in the lungs bilaterally concerning for pulmonary edema versus atypical pneumonia. Echocardiogram with an ejection fraction of 25 to 30% and systolic function was severely globally impaired. Right ventricle normal. Mild to moderate mitral regurgitation. Mild to moderate tricuspid regurgitation. RVSP at rest 64 mmHg. Troponin was 27, 147, 141, 113, 114. These are high-sensitivity troponins. In the face of pleural effusions and a low ejection fraction these were felt to be from demand ischemia and not true STEMI. - HOSPITAL COURSE Hospital Course: The patient was started on anticoagulation therapy. It took us several attempts of several conversationa with him to figure out which medication to us because he kept on telling us that he was allergic to heparin, Lovenox. He said he was allergic to Plavix. He was allergic to Xarelto. He states that he has had experience with all these medications in the past with his bypass surgery and stenting, etc. He developed atrial fibrillation which was a new diagnosis for him. He is a very difficult historian to pin down and that he takes Lasix IV but refuses to take it p.o. because p.o. he is allergic to po but he is not to IV. Many times during the stay he was not happy that he was receiving Lopressor because he would rather take his Ivabradine. Lopressor was another drug he stated would make him short of breath. He had a waxing and waning shortness of breath. We would try and diurese him for congestive heart failure and at the same time safely anticoagulate him. Both his primary care provider, Dr. Aguila Saeed, and his parquet floor layer, Dr. Mae, called me from his town in [place] where he lives. They are both part of [facility]. They did advise me that this gentleman was very stubborn, very difficult to get him to be compliant. He had his own ideas of what medications he could take or not take. He did state that he was ready to . He did know when it was going to happen but he was not afraid of dying. That he had all planned out with regards to returning to home, living in a convalescent home until the end of his days. He did not want his to have to take care of him. But this was a discussion for a future plan, certainly not now. As we were getting ready to have a discharge disposition, the patient surprises by telling us that he wanted to be in hospice immediately. He had decided after a couple of days that his congestive heart failure, shortness of breath, and overall fatigue with the blood clots was not something he wanted to keep on living with. 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 He wanted to go home. I had a long conversation with his and stepson the day before discharge. As well as on discharge. The patient was not to be swayed from his idea of wanting to go home to hospice immediately. As such the family is making plans to do that. But at this point in time, the patient is still receiving active care. He is discharged to his son's home and will be getting oxygen, nebulizers. He says that he agrees to take the Eliquis I have prescribed but he is not happy that I am not giving him injectable. He is adamant that his could learn how to do that if I would only teacher. I explained to him that as long as Eliquis is available and he can take it by mouth without any reaction we would prefer that. He says he will try and take the Eliquis but he will not promise. At the time of discharge he is a frail elderly gentleman easily short of breath with just sitting up in bed. Temperature is 36.3. Pulse 96 and regular. He had gone from being in atrial fibrillation to self converting back to sinus rhythm at the time of discharge. We are assuming that his atrial fibrillation is from his PE. His troponins did not rise enough. Blood pressure 148/65. Respirations 24. 98% on 2 L. Neck has mild JVD. Lungs have occasional crackles that clear with cough with severely diminished breath sounds at the bases. Again, cannot emphasize how easily tachypneic as he is. Regular rate and rhythm with a systolic ejection murmur and an RV lift. The abdomen is obese, soft, nontender with hypoactive bowel sounds at room air he was 92% sitting. With ambulation his O2 sats dropped to 87%. After patient the patient on 2 L nasal cannula his O2 sats improved to 92%. I am ordering home O2, to be used with exertion to treat Mr. Rojas pulmonary emboli and COPD and hypoxemia. He is to resume his Breo. His Bumex. Metolazone. He plans on driving to [place] in a rented RV. I have asked him to please p paris follow-up with Dr. Saeed. Please be careful of Eliquis since is an anticoagulant. To please, please be compliant with his medications. Greater than 30 minutes was spent coordinating discharge. - ALLERGIES Allergies/Adverse Reactions: Allergies Allergy/AdvReac Type Severity Reaction Status Date / Time clopidogrel [From Plavix] Allergy Respiratory Verified 04/26/21 02:08 enoxaparin [From Lovenox] Allergy Anaphylaxis Verified 04/26/21 02:07 furosemide [From Lasix] Allergy Respiratory Verified 04/26/21 02:08 - MEDICATIONS Home Medications: Ambulatory Orders Medication Instructions Recorded Confirmed Albuterol Sulfate [Proair 2 puffs PO Q4H PRN 04/26/21 04/26/21 Respiclick] Bumetanide [Bumex] 1 mg PO DAILY 04/26/21 04/26/21 Docusate Sodium 100Mg Capsule 100 mg PO DAILY PRN 04/26/21 04/26/21 [Colace 100Mg Capsule] Fluticasone/Vilanterol [Breo 1 puffs PO DAILY 04/26/21 04/26/21 Ellipta 100-25 Mcg INH] Glimepiride [Amaryl] 4 mg PO BID 04/26/21 04/26/21 Ivabradine HCl [Corlanor] 5 mg PO BID 04/26/21 04/26/21 Probenecid [Benemid] 500 mg PO BID 04/26/21 04/26/21 metOLazone [Metolazone] 5 mg PO DAILY 04/26/21 04/26/21 Apixaban [Eliquis] 5 mg PO DAILY #30 tablet 04/27/21 Apixaban [Eliquis] 10 mg PO BID #28 tablet 04/27/21 - LABS Result Diagrams: 04/30/21 06:30 04/30/21 06:30
== END 2021-04-30 18:20 | disposition home or self-care (01) | DRG 175 ==
LOC: ED 01:48 → MS2 05:38
PROVIDERS: ADMIT Specialist; ATTEND Specialist
DX: I26.99 Other pulmonary embolism without acute cor pulmonale (principal); J44.9 Chronic obstructive pulmonary disease, unspecified; I10 Essential (primary) hypertension; Z95.0 Presence of cardiac pacemaker; Z20.822 Contact with and (suspected) exposure to COVID-19; I26.92 Saddle embolus of pulmonary artery without acute cor pulmonale; J96.01 Acute respiratory failure with hypoxia; I50.23 Acute on chronic systolic (congestive) heart failure; I13.0 Hypertensive heart and chronic kidney disease with heart failure and stage 1 through stage 4 chronic kidney disease, or unspecified chronic kidney disease; J44.1 Chronic obstructive pulmonary disease with (acute) exacerbation; N17.9 Acute kidney failure, unspecified; J90 Pleural effusion, not elsewhere classified; I24.8 Other forms of acute ischemic heart disease; N18.9 Chronic kidney disease, unspecified; E11.22 Type 2 diabetes mellitus with diabetic chronic kidney disease; Z79.84 Long term (current) use of oral hypoglycemic drugs; I48.91 Unspecified atrial fibrillation; Z79.01 Long term (current) use of anticoagulants; M54.9 Dorsalgia, unspecified; G89.29 Other chronic pain; E11.21 Type 2 diabetes mellitus with diabetic nephropathy; Z87.891 Personal history of nicotine dependence; R53.1 Weakness; I25.10 Atherosclerotic heart disease of native coronary artery without angina pectoris; Z95.810 Presence of automatic (implantable) cardiac defibrillator; R41.89 Other symptoms and signs involving cognitive functions and awareness; Z88.8 Allergy status to other drugs, medicaments and biological substances; E11.51 Type 2 diabetes mellitus with diabetic peripheral angiopathy without gangrene; I25.2 Old myocardial infarction; F03.90 Unspecified dementia, unspecified severity, without behavioral disturbance, psychotic disturbance, mood disturbance, and anxiety; Z95.1 Presence of aortocoronary bypass graft; Z66 Do not resuscitate; Z91.128 Patient's intentional underdosing of medication regimen for other reason
CPT/HCPCS: 36415; 71045; 71275; 80048; 80053; 82043; 82803; 83036; 83690; 83880; 84443; 84484; 85025; 85379; 85610; 85730; 87631; 93005; 93306; 93970; 94640; 94761; 99283; 99285; A9270; J1652; J7626; Q9967; 0202U